=== PATIENT | female | born 1980 | race Two or more races ===

== ENCOUNTER 2020-05-30 09:12 | Outpatient (REF) | payer OTHER, SELFPAY ==
[2020-06-03 21:52] LABS: HPV mRNA E6/E7 Not Detected (Not Detected)
== END 2020-05-30 09:13 | disposition home or self-care (01) ==
LOC: HO.LAB 09:12
PROVIDERS: PCP Internal Medicine; Visit Provider Obstetrics & Gynecology
DX: Z01.419 Encounter for gynecological examination (general) (routine) without abnormal findings (principal)
CPT/HCPCS: 36415; 87624; 87625; 88141; 88142

== ENCOUNTER 2021-05-23 07:59 | Outpatient (REF) | payer OTHER, SELFPAY ==
[2021-05-23 08:23] LABS: MANUAL DIFF FLAG NO
[2021-05-23 09:52] LABS: Basophils Percent Auto 0.5 % (0-2); Eosinophils Absolute Auto 0.2 X10*3/uL (0.0-0.4); Eosinophils Percent Auto 2.9 % (0-4); Hematocrit 41.1 % (37.0-47.0); Hemoglobin 13.4 g/dl (12.0-16.0); Imm Gran Abs Auto 0.01 X10*3/uL (0.00-0.03); Imm Gran Pct Auto 0.1 % (0.0-0.4); Lymphocytes Absolute Auto 2.4 X10*3/uL (1.2-4.9); Lymphocytes Percent Auto 32.9 % (20-40); Mean Corpuscular HGB Conc 32.6 g/dl (31.0-35.0); Mean Corpuscular Hemoglobin 29.3 pg (27.0-33.0); Mean Corpuscular Volume 89.9 fL (80.0-98.0); Mean Platelet Volume 10.6 fL (9.4-12.3); Monocytes Absolute Auto 0.7 X10*3/uL (0.1-1.2); Monocytes Percent Auto 9.7 % (2-11); Neutrophils Percent Auto 53.9 % (45-73); Platelet Count 342 X10*3/uL (160-400); Red Blood Count 4.57 X10*6/uL (4.20-5.50); Red Cell Distribution Width 13.1 % (11.0-16.0); White Blood Count 7.3 X10*3/uL (4.8-10.8)
[2021-05-23 10:29] LABS: Alanine Aminotransferase 18 U/L (0-31); Albumin Level 4.5 g/dL (3.5-5.0); Alkaline Phosphatase 68 U/L (39-117); Anion Gap 13 (12-20); Aspartate Amino Transferase 26 U/L (5-31); Bilirubin Total 0.7 mg/dL (0.0-1.0); Blood Urea Nitrogen 12 mg/dL (9-16); Calcium 10.1 mg/dL (8.4-10.2); Chloride 102 mmol/L (96-108); Cholesterol 189 mg/dL; Estimated Glomerular Filt Rate 54; Glucose Random 104 mg/dL (60-115); Potassium 5.2 mmol/L (3.3-5.1); Sodium 134 mmol/L (135-145); Triglycerides 57 mg/dL
[2021-05-23 10:37] LABS: Carbon Dioxide 24 mmol/L (22-29); HDL Cholesterol 77 mg/dL; LDL Cholesterol Calculated 101 mg/dl
[2021-05-23 10:53] LABS: Folate 19.6 ng/mL (> or = 4.0); Vitamin B12 412 pg/mL (200-900)
[2021-05-23 11:01] LABS: Free T4 (Free Thyroxine) 1.06 ng/dL (0.71-1.85); Vitamin D 25-OH Total 25.8 ng/mL (>30)
== END 2021-05-23 08:00 | disposition home or self-care (01) ==
LOC: HO.LAB 07:59
PROVIDERS: PCP Internal Medicine; Visit Provider Internal Medicine
DX: E66.9 Obesity, unspecified (principal); E78.00 Pure hypercholesterolemia, unspecified
CPT/HCPCS: 36415; 80053; 80061; 82306; 82607; 82746; 84439; 84443; 85025

== ENCOUNTER → 2021-06-02 08:33 | Outpatient (BNVA) | payer OTHER, SELFPAY | PROVIDERS: PCP Internal Medicine; Visit Provider Obstetrics & Gynecology ==

== ENCOUNTER 2021-06-20 08:29 | Outpatient (REF) | payer OTHER, SELFPAY ==
--- NOTE | ~2021-06-20 | MM_ITS ---
EXAMINATION: MM SCREENING DIGITAL BREAST TOMOSYNTHESIS, BILATERAL CLINICAL INFORMATION: Screening. Asymptomatic. Age 41. No prior breast imaging. No known family history breast cancer. The lifetime risk of breast cancer based on the Tyrer-Cuzick Model is 11%. COMPARISON: None (current study represents initial baseline exam). TECHNIQUE: Digital breast tomosynthesis is performed in both the craniocaudal and mediolateral oblique views along with computer-aided detection (CAD). Synthesized 2D images are generated from the tomosynthesis. FINDINGS: There are scattered areas of fibroglandular density (ACR BI-RADS breast composition Category b). There are no significant masses, abnormal calcifications, or other abnormalities. Breast tissue composition borders on heterogeneously dense. The skin contours are smooth. Axilla are unremarkable. MM/MM tomosynthesis screening BI IMPRESSION: No mammographic evidence of malignancy. ASSESSMENT: BI-RADS 1: Negative RECOMMENDATION: Routine annual mammography screening. This patient's information was entered into a reminder system with a target due date for their next mammogram.
== END 2021-06-20 08:30 | disposition home or self-care (01) ==
LOC: HO.MAMMO 08:29
PROVIDERS: Visit Provider Internal Medicine
DX: Z12.31 Encounter for screening mammogram for malignant neoplasm of breast (principal)
CPT/HCPCS: 77063; 77067

== ENCOUNTER → 2021-07-29 07:28 | Outpatient (BNVA) | payer OTHER, SELFPAY | PROVIDERS: PCP Internal Medicine; Referring Provider Internal Medicine; Visit Provider Nurse Practitioner | DX: Z12.11 Encounter for screening for malignant neoplasm of colon (principal); Z80.0 Family history of malignant neoplasm of digestive organs ==

== ENCOUNTER 2021-11-26 07:34 | Day surgery (SDC) | payer OTHER, SELFPAY ==
[2021-11-19 19:53] VITALS: BMI 32.0
[2021-11-20 10:38] VITALS: BMI 33.0
--- NOTE | 2021-11-26 07:30 | HO.ANESPROP2 ---
HPI - Anesthesia Eval Consult details Narrative: 41 yo female patient for colonoscopy PMF Active Problems Active Problems: All Active Problems (Updated 07/29/21 @ 11:17 by NEREYDA Chase) Family history of malignant neoplasm of colon in relative diagnosed when younger than 50 years of age (Acute) Menorrhagia (Acute) Breast cancer screening by mammogram (Acute) Colon cancer screening (Acute) Well woman exam (Acute) Annual physical exam (Acute) Obesity (BMI 30-39.9) (Acute) Asthma (Acute). Controlled. No inhalers recently Denies DARINEL Past Medical History Medical History Asthma BRY III (cervical intraepithelial neoplasia grade III) with severe dysplasia Obesity (BMI 30-39.9) Vitamin D deficiency Family History Family History Father Colon cancer Mother No problems noted. Paternal Grandmother Myocardial infarction Maternal Grandfather Medical history unknown Family history of problems with anesthesia: No Surgical History Surgical History H/O LEEP History of ankle surgery History of section History of Problems with Anesthesia: No Social History Social History Housing: Apartment Alcohol intake: current Alcohol intake frequency: a few times a month Patient Tobacco Use Status: Former Tobacco user Tobacco use type: Cigarette Years Smoked: 2009 stopped e-Cigarette/Vaping Use: Never Used Second Hand Smoke Exposure: No Use of substances other than those prescribed or required for medical reasons: No Have you been hit, kicked, punched, or otherwise hurt by someone within the past year? If so, by whom?: No Are you DNR?: No Advance Directives: No Advance Directives Information Provided: Yes Advance Directives on File: No Recently lost weight without trying: No Nutrition Risks: No Nutritional Risk Patient : No : No Current occupational status: employed Meds Allergies Allergy/AdvReac Type Severity Reaction Status Date / Time shellfish derived Allergy Unknown Hives Verified 07/29/21 07:38 Exam Exam Date and Time: November 26, 2021 0730 Height,Weight and Vital Signs: Height 5 ft 2 in Weight 82.1 kg Vital Signs Temp Pulse Resp BP Pulse Ox O2 Del Method 11/26/21 07:49 98.1 F 71 18 129/94 H 98 Room Air Pertinent Lab Results Pertinent Lab Results: Lab Results 11/26/21 Range/Units 07:40 Urine Test NEGATIVE (NEGATIVE) Airway Mallampati Class: I TM Dist: >3cm Neck ROM: Full Loose/Missing/Broken Teeth: Yes (Some missing-extracted. Denies broken or loose teeth) Heart: RRR Lungs: CTAB Assessment and Plan Assessment Anesthesia Assessment: Anesthesia Plan Discussed and Chart Reviewed Final Anesthetic Review Family History of Problems with Anesthesia: No History of Problems with Anesthesia: No NPO: Yes ASA Class: II Final Preanesthetic Review: No Changes in Pt Med Stat, Meds/Allgs Chart Reviewed, Consent Obtained/Reviewed and Anes Risks/Benef Reviewed Patient Risk: Low Procedure Risk: Low Assessment/Block/Sedation in SS: Assess/Block/Sedation-SS Anesthetic Plan Anesthetic Plan: MAC: Disposition: Standard PACU
[2021-11-26 07:49] VITALS: BP 129/94; PULSE 71; RESP 18; TEMP 36.7; O2SAT 98
[2021-11-26 07:57] LABS: UPreg QC Valid YES; Urine Pregnancy NEGATIVE (NEGATIVE)
[2021-11-26] MEDS: Lactated Ringers 1,000 ML 100 ML IVCONT (08:06)
--- NOTE | 2021-11-26 08:38 | MHC.SHP ---
Pre-Procedural Eval Section A Date of Service: 11/26/21 Section B Chief Complaint: screening Details of Present Illness: father with CRC aged 38 Relevant Family History (Specify if Yes): Yes Relevant Social History: None Present Medications: see Short Stay Collaborative assessment Medical History: Significant History (Asthma BRY III (cervical intraepithelial neoplasia grade III) with severe dysplasia Obesity (BMI 30-39.9) Vitamin D deficiency) History of Previous Operations: Relevant previous surgery/procedure and date(s) (, LEEP) Allergies: Allergies Allergy/AdvReac Type Severity Reaction Status Date / Time shellfish derived Allergy Unknown Hives Verified 07/29/21 07:38 Review of Systems Sugical H&P ROS: Negative: Constitution, Cardiovascular, Respiratory, Neurological, Psychiatric, Hem-Onc, Allergic/Immunologic, Gastrointestinal, Genitourinary, Musculoskeletal, Integumentary, Endocrine and Eyes/Ears/Nose/Throat Exam Surgical H&P Exam: Normal: HEENT, Normal: Heart, Normal: Lungs, Normal: Extremities, Normal: Abdomen, Normal: Skin and Normal: Neurological Plan Diagnosis/Plan: Unchanged I have reviewed the history and physical and performed a pertinent physical examination on my patient. No changes have occurred unless specified.
--- NOTE | 2021-11-26 08:39 | P.OP_ITS ---
Operative Note Operative Note Date of Service: 11/26/21 Narrative: Operative Information Procedure Description: Colonoscopy Indication: screening, FH of CRC Anesthesia: MAC COLONOSCOPY Instrument: Olympus variable stiffness pediatric scope 190L Colonoscopy Monitoring: Vital signs and clinical assessment, continuous EKG monitoring, Pulse oximetry, Carbon Dioxide monitoring and blood pressure monitoring were done throughout the procedure. Colon withdrawal time was 10 minutes. Procedure: The patient was placed in the left lateral decubitis position and pre-procedure medications were administered. After a digital rectal examination of the ano-rectum, the video colonoscope was inserted into the rectum and advanced through the colon to the cecum/TI. The colonoscope was slowly withdrawn in a retrograde panoramic fashion and the colon mucosa was carefully examined including a retroflexed view of the rectum. Findings and interventions are described below. Procedure Difficulty: easy Findings: Terminal Ileum-normal Cecum:normal Ascending Colon: normal Transverse Colon -normal Descending Colon:normal Sigmoid Colon: normal Rectum: Retroflexion with small internal hemorrhoids, grade I Anorectum - normal Colon preparation: Harrells Bowel Preparation Scale Right colon; 2 Transverse colon: 3 Left colon; 2 (0 = Unprepared colon segment with mucosa not seen due to solid stool that cannot be cleared. 1 = Portion of mucosa of the colon segment seen, but other areas of the colon segment not well seen due to staining, residual stool and/or opaque liquid. 2 = Minor amount of residual staining, small fragments of stool and/or opaque liquid, but mucosa of colon segment seen well. 3 = Entire mucosa of colon segment seen well with no residual staining, small fragments of stool or opaque liquid) Impression and Post Procedure Diagnosis: internal hemorrhoids Plan: High fiber diet leaflet Avoid straining at stool, epsom salts and sitz bath, anusol supps or cream Repeat Colonoscopy in 5 years due to FH of CRC or earlier if clinically indicated Above findings were reviewed with the patient and relevant handouts were provided if indicated.
[2021-11-26 09:05] VITALS: BP 110/65; PULSE 66; RESP 15; TEMP 36.1; O2SAT 100
[2021-11-26 09:20] VITALS: BP 128/64; PULSE 61; RESP 16; TEMP 36.1; O2SAT 100
== END 2021-11-26 09:55 | disposition home or self-care (01) ==
PROVIDERS: Nurse Practitioner; PCP Internal Medicine; Visit Provider Internal Medicine Gastroenterology
PROC: 0DJD8ZZ Inspection of Lower Intestinal Tract, Via Natural or Artificial Opening Endoscopic (ICD-10-PCS; CPT 45378; principal; 2021-11-26 08:30)
DX: Z12.11 Encounter for screening for malignant neoplasm of colon (principal); Z80.0 Family history of malignant neoplasm of digestive organs; K64.0 First degree hemorrhoids; J45.909 Unspecified asthma, uncomplicated; E55.9 Vitamin D deficiency, unspecified; E66.9 Obesity, unspecified; Z68.33 Body mass index [BMI] 33.0-33.9, adult; Z87.891 Personal history of nicotine dependence
CPT/HCPCS: 45378; 81025

== ENCOUNTER → 2022-06-08 07:55 | Outpatient (BNVA) | payer OTHER, SELFPAY | PROVIDERS: PCP Internal Medicine; Visit Provider Obstetrics & Gynecology | DX: Z13.89 Encounter for screening for other disorder (principal) ==

== ENCOUNTER 2022-06-09 10:54 | Outpatient (REF) | payer OTHER, SELFPAY ==
[2022-06-09 11:06] LABS: MANUAL DIFF FLAG NO
[2022-06-09 12:05] LABS: Basophils Percent Auto 0.5 % (0-2); Eosinophils Absolute Auto 0.2 X10*3/uL (0.0-0.4); Eosinophils Percent Auto 2.6 % (0-4); Hematocrit 35.8 % (37.0-47.0); Hemoglobin 11.5 g/dl (12.0-16.0); Imm Gran Abs Auto 0.01 X10*3/uL (0.00-0.03); Imm Gran Pct Auto 0.2 % (0.0-0.4); Lymphocytes Absolute Auto 1.9 X10*3/uL (1.2-4.9); Lymphocytes Percent Auto 33.2 % (20-40); Mean Corpuscular HGB Conc 32.1 g/dl (31.0-35.0); Mean Corpuscular Hemoglobin 28.2 pg (27.0-33.0); Mean Corpuscular Volume 87.7 fL (80.0-98.0); Mean Platelet Volume 11.3 fL (9.4-12.3); Monocytes Absolute Auto 0.6 X10*3/uL (0.1-1.2); Monocytes Percent Auto 10.6 % (2-11); Neutrophils Percent Auto 52.9 % (45-73); Platelet Count 277 X10*3/uL (160-400); Red Blood Count 4.08 X10*6/uL (4.20-5.50); Red Cell Distribution Width 13.2 % (11.0-16.0); White Blood Count 5.8 X10*3/uL (4.8-10.8)
[2022-06-09 12:39] LABS: Estimated Average Glucose 91 mg/dL; Hemoglobin A1c % 4.8 %
[2022-06-09 12:41] LABS: Alanine Aminotransferase 18 U/L (0-31); Alkaline Phosphatase 51 U/L (39-117); Anion Gap 10 (12-20); Aspartate Amino Transferase 25 U/L (5-31); Bilirubin Total 0.6 mg/dL (0.0-1.0); Blood Urea Nitrogen 10 mg/dL (9-16); Calcium 9.3 mg/dL (8.4-10.2); Carbon Dioxide 28 mmol/L (22-29); Chloride 105 mmol/L (96-108); Cholesterol 182 mg/dL; Estimated Glomerular Filt Rate > 60; Glucose Random 96 mg/dL (60-115); HDL Cholesterol 78 mg/dL; LDL Cholesterol Calculated 95 mg/dl; Potassium 4.5 mmol/L (3.3-5.1); Sodium 138 mmol/L (135-145); Total Protein 6.6 g/dL (6.5-8.0); Triglycerides 46 mg/dL
[2022-06-09 13:12] LABS: Folate 11.9 ng/mL (> or = 4.0); Free T4 (Free Thyroxine) 0.93 ng/dL (0.71-1.85); Thyroid Stimulating Hormone 0.94 uIU/mL (0.32-4.0); Vitamin B12 296 pg/mL (200-900); Vitamin D 25-OH Total 20.9 ng/mL (>30)
== END 2022-06-09 10:55 | disposition home or self-care (01) ==
LOC: HO.LAB 10:54
PROVIDERS: PCP Internal Medicine; Visit Provider Internal Medicine
DX: E78.00 Pure hypercholesterolemia, unspecified (principal); R73.02 Impaired glucose tolerance (oral)
CPT/HCPCS: 36415; 80053; 80061; 82306; 82607; 82746; 83036; 84439; 84443; 85025

== ENCOUNTER 2022-06-26 09:09 | Outpatient (REF) | payer OTHER, SELFPAY ==
--- NOTE | ~2022-06-26 | MM_ITS ---
EXAMINATION: MM SCREENING DIGITAL BREAST TOMOSYNTHESIS, BILATERAL CLINICAL INFORMATION: Screening. Asymptomatic. The lifetime risk of breast cancer based on the Tyrer-Cuzick Model is 11%. COMPARISON: Mammography: 06/20/2021 (baseline) TECHNIQUE: Digital breast tomosynthesis is performed in both the craniocaudal and mediolateral oblique views along with computer-aided detection (CAD). Synthesized 2D images are generated from the tomosynthesis. FINDINGS: The breasts are heterogeneously dense, which may obscure small masses (ACR BI-RADS breast composition Category c). Breast tissue composition borders on average fibroglandular. Some minor scattered asymmetries are stable. No developing density or interval architectural abnormality or significant mass. No abnormal calcifications. The axilla and skin contours are unremarkable. No significant changes. MM/MM tomosynthesis screening BI IMPRESSION: No mammographic evidence of malignancy. ASSESSMENT: BI-RADS 2: Benign RECOMMENDATION: Routine annual mammography screening. This patient's information was entered into a reminder system with a target due date for their next mammogram.
== END 2022-06-26 09:10 | disposition home or self-care (01) ==
LOC: HO.MAMMO 09:09
PROVIDERS: PCP Internal Medicine; Visit Provider Obstetrics & Gynecology
DX: Z12.31 Encounter for screening mammogram for malignant neoplasm of breast (principal)
CPT/HCPCS: 77063; 77067

== ENCOUNTER 2023-06-10 07:56 | Outpatient (AMB) | payer OTHER, SELFPAY ==
--- NOTE | 2023-06-10 08:12 | A.OFFVIS_ITS ---
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 Complaining of irregular menstrual cycle over the last six-month Last Pap/HPV was negative in 05/30 Last Mammogram was BI-RADS 2 in 07/02 [facility] Medical History Breast cancer screening by mammogram Colon cancer screening Vitamin D deficiency Obesity (BMI 30-39.9) BRY III (cervical intraepithelial neoplasia grade III) with severe dysplasia Asthma Surgical History History of ankle surgery H/O LEEP History of section Family History Father Colon cancer Mother No problems noted. 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 Sexual orientation: Straight/Heterosexual Gender identity: Female Cognitive needs: No Hearing needs: No Vision needs: No Female Reproductive History Menstrual Age of Menarche: 14 Duration of menses: 3-5 days Date of last menstrual period: 05/22/23 control method: none Total pregnancies: 2 Full term: 2 Number of Living Children: 2 Review of Systems Const All systems reviewed & are unremarkable except as noted in HPI and below Card Reports as per HPI Resp Reports as per HPI GI Reports as per HPI and Reports no additional complaints Reports as per HPI Physical Exam Vital Signs: Last Vital Signs BP 118/74 06/10/23 08:13 BMI result Body Mass Index 32.3 Const General: cooperative, healthy appearing and comfortable Chest Chest palpation & inspection: normal inspection of the chest and normal palpation of entire chest wall Breast/axilla inspection: normal inspection of the breasts and normal inspection of the axillae Breast/axilla palpation: normal palpation of the breasts, normal palpation of the axillae and no axillary lymphadenopathy Resp Effort & Inspection: normal respiratory effort Auscultation: clear to auscultation bilaterally Percussion: percussion normal Cardio Palpation: normal PMI Rate: regular rate Rhythm: regular rhythm Heart sounds: no murmurs and no rubs Peripheral pulses: Peripheral pulses 2+ throughout GI Inspection: Yes normal to inspection Palpation (GI): Soft to palpation, nontender, no guarding, not rigid and No hepatosplenomegaly present Percussion: Yes normal to percussion Auscultation: normal bowel sounds Rectal Exam - Female: deferred General: Yes bladder normal to palpation External Female Exam: No lesion Speculum Exam - Vagina: normal appearance of the vagina, normal palpation, normal vaginal discharge and not erythematous Speculum Exam - Cervix: normal appearance of the cervix and normal palpation Bimanual exam- vagina & uterus: normal bimanual exam, normal palpation, uterine size normal, bladder normal to palpation, consistency normal and normal palpation Bimanual Exam- Adnexa, other: normal adnexae, no masses and no tenderness Assessment & Plan Assessment & Plan (1) Well woman exam: Code(s): Z01.419 - Encounter for gynecological examination (general) (routine) without abnormal findings Plan: Cotesting not indicated this year. Mammogram ordered. Counseled the patient about the recommended dietary allowance of 1000 mg of Calcium & 600 IU of vitamin D. The patient was instructed to perform monthly self-breast exams and to schedule an annual exam in a year; All questions answered and the patient verbalized understanding. Instructed the patient to schedule annual exam in a year (2) Abnormal uterine bleeding: Code(s): N93.9 - Abnormal uterine and vaginal bleeding, unspecified Plan: Co testing not indicated this year, GC and chlamydia taken CBC, TSH, prolactin, FSH/LH, HCG, and pelvic ultrasound ordered. Discussed with the patient the different causes of abnormal bleeding including thyroid disorders, uterine and ovarian pathology, endometrial hyperplasia, carcinoma and other potential causes. Discussed with the patient the work up including CBC (to r/o anemia), TSH, pelvic Ultrasound, endometrial biopsy to r/o endometrial pathology. All questions answered and the patient verbalized understanding. Instructed the patient to schedule an appointment for an endometrial biopsy in 2 weeks. Orders: Orders TSH reflex Free T4 Today N93.9 - Abnormal uterine and vaginal bleeding, unspecified Prolactin Today N93.9 - Abnormal uterine and vaginal bleeding, unspecified HCG Quantitative Today N93.9 - Abnormal uterine and vaginal bleeding, unspecified US pelvic and transvaginal Today N93.9 - Abnormal uterine and vaginal bleeding, unspecified MM screening mammo BI Today Z12.31 - Encounter for screening mammogram for malignant neoplasm of breast MM tomosynthesis screening BI Today Z12.31 - Encounter for screening mammogram for malignant neoplasm of breast Complete Blood Count no Diff Today N93.9 - Abnormal uterine and vaginal bleeding, unspecified Lutenizing Hormone Today N93.9 - Abnormal uterine and vaginal bleeding, unspecified Follicle Stimulating Hormone Today N93.9 - Abnormal uterine and vaginal bleeding, unspecified Coding Level of Care Code Est Pt Prev Care 40-64y(21554) Diagnoses Well woman exam Z01.419 Abnormal uterine bleeding N93.9
[2023-06-10 08:13] VITALS: BP 118/74; BMI 32.3
== END 2023-06-10 08:35 | disposition home or self-care (01) ==
PROVIDERS: Visit Provider Obstetrics & Gynecology
DX: Z01.419 Encounter for gynecological examination (general) (routine) without abnormal findings (principal); N93.9 Abnormal uterine and vaginal bleeding, unspecified
CPT/HCPCS: 99396

== ENCOUNTER 2023-06-10 07:56 | Outpatient (REF) | payer OTHER, SELFPAY ==
[2023-06-10 11:51] LABS: CT PCR NOT DETECTED (Not Detect.); NG PCR NOT DETECTED (Not Detect.)
== END 2023-06-10 07:57 | disposition home or self-care (01) ==
LOC: HO.LNP 07:56
PROVIDERS: Visit Provider Obstetrics & Gynecology
DX: N93.9 Abnormal uterine and vaginal bleeding, unspecified (principal); Z20.2 Contact with and (suspected) exposure to infections with a predominantly sexual mode of transmission
CPT/HCPCS: 0353U

== ENCOUNTER 2023-06-15 10:55 | Outpatient (AMB) | payer OTHER, SELFPAY ==
[2023-06-15 10:57] VITALS: BP 122/84; PULSE 78; O2SAT 99; BMI 31.2
--- NOTE | 2023-06-15 10:57 | A.OFFPC_ITS ---
Vital Signs 06/15/23 10:57 Height 5 ft 1 in Weight 165 lb 0.6 oz BMI 31.2 BP 122/84 Blood Pressure Location Lt brachial Position Sitting Pulse 78 Pulse Source Pulse Oximeter Pulse Oximetry (%) 99 Oxygen Delivery Method Room Air Intake Visit Reasons: Annual Exam Intake Note: Patient is here today for a physical. Configuration Analyst Required: No Allergies shellfish derived Allergy (Unknown, Verified 06/15/23 10:57) Hives Medication List - Last Reconciled 06/15/23 by Lazaro Stark MD No Known Home Meds Tobacco use date assessed: 06/15/23 Dental Screening Dental Screen Date: 06/15/23 Did you have a dental visit in the last 12 months?: Yes Did you have a dental problem in the last 6 months where you did not have access to dental care?: No Was dental information given to patient?: Patient has dentist HPI Annual Exam HPI Details 43-year-old obese female with asthma imp aired glucose tolerance coming in for physical exam last seen in May last year. Patient's mammogram is due colonoscopy is up-to-date November 2021 5 years. has anemia and menorrhagia - US to be done under gynecology [facility] Medical History Breast cancer screening by mammogram Colon cancer screening Vitamin D deficiency Obesity (BMI 30-39.9) BRY III (cervical intraepithelial neoplasia grade III) with severe dysplasia Asthma Surgical History History of ankle surgery H/O LEEP History of section Family History Father Colon cancer Mother No problems noted. 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 1. Little interest or pleasure in doing things: not at all 2. Feeling down, depressed, or hopeless: not at all 3. Trouble falling or staying asleep, or sleeping too much: not at all 4. Feeling tired or having little energy: not at all 5. Poor appetite or overeating: not at all 6. Feeling bad about yourself - or that you are a failure or have let yourself or your family down: not at all 7. Trouble concentrating on things, such as reading the newspaper or watching television: not at all 8. Moving or speaking so slowly that other people could have noticed. Or the opposite - being so fidgety or restless that you have been moving around a lot more than usual: not at all 9. Thoughts that you would be better off or of hurting yourself in some way: not at all Total score: 0 Depression Screening Interpretation: Negative Depression Screening Done: Yes Source: Developed by Drs. Kavon Cobb, Simona Lagunas, Keegan Whyte and colleagues, with an educational latasha from [employer]. Thrive Questionnaire Date Thrive assessed: 06/15/23 AUDIT C Alcohol Use Questionnaire (AUDIT-C) 1. How often do you have a drink containing alcohol?: Monthly or less 2. How many drinks containing alcohol do you have on a typical day when you are drinking?: 1 or 2 3. How often do you have six or more drinks on one occasion?: Never Total Score: 1 ROBERTO CARLOS-7 AMB Questionnaire ROBERTO CARLOS-7 Date ROBERTO CARLOS - 7 assessed: 06/15/23 Feeling nervous, anxious, or on edge: 0 = Not at all Not being able to stop or control worryin = Not at all Worrying too much about different things: 0 = Not at all Trouble relaxin = Not at all Being so restless that it is hard to sit still: 0 = Not at all Becoming easily annoyed or irritable: 0 = Not at all Feeling afraid as if something awful might happen: 0 = Not at all Total ROBERTO CARLOS-7 score (0-4 normal; 5-9 mild; 10-14 moderate; 15-21 severe): 0 Source: Developed by Drs. Kavon Cobb, Simona Lagunas, Keegan Whyte and colleagues, with an educational latasha from [employer]. Review of Systems Const Denies poor appetite and Denies weakness Eyes Denies no additional complaints ENT Reports Normal hearing present, Denies dizziness, Denies nasal congestion, Denies tinnitus and Denies sore throat Card Denies chest pain, Denies syncope, Denies rapid heart rate and Denies dyspnea Resp Denies cough and Denies dyspnea GI Denies change in stool character, Reports constipation, Denies diarrhea, Denies nausea and Denies vomiting Denies urinary frequency, Denies difficulty voiding and Denies dysuria Neuro Reports Normal hearing present, Denies confusion, Denies dizziness, Denies syncope and Denies weakness Psych Denies confusion Physical exam (Primary Care) Vital Signs: Last Vital Signs Pulse 78 06/15/23 10:57 BP 122/84 06/15/23 10:57 Pulse Ox 99 06/15/23 10:57 Oxygen Delivery Method Room Air 06/15/23 10:57 BMI result Body Mass Index 31.2 Tobacco/Smoking Status: Tobacco use Status Tobacco use date assessed 06/15/23 06/15/23 10:58 Patient Tobacco Use Status Former Tobacco user 06/15/23 10:58 Tobacco use type Cigarette 06/15/23 10:58 e-Cigarette/Vaping Use Never Used 06/15/23 10:58 PHQ-9: PHQ-9 Score PHQ-9: Total score 0 06/15/23 11:22 Depression Screening Interpretation: Negative Thrive Assessment: Date of Thrive Assessment Date Thrive assessed 06/15/23 06/15/23 10:58 Const General: No confusion Orientation/consciousness: No confusion HENMT Head: Yes normocephalic Ears: external ears normal and TM's normal bilaterally Face and sinus: Yes normal facial exam Mouth: moist mucous membranes Throat: Yes tonsils normal Eyes Conjunctivae: conjunctivae normal Pupils: Equal, round and reactive pupils present and Pupil accommodation reflex normal Direct Ophthalmoscopy: normal light reflex Neck Neck: No lymphadenopathy Thyroid: Thyroid normal Chest Chest palpation & inspection: normal inspection of the chest Resp Effort & Inspection: normal respiratory effort and no audible wheezes Auscultation: clear to auscultation bilaterally, no crackles, no wheezes and lung sounds not diminished Cardio Rate: regular rate Rhythm: regular rhythm Peripheral pulses: radial pulses present and dorsalis pedis present GI Palpation (GI): no masses Auscultation: normal bowel sounds and normoactive bowel sounds Rectal Exam - Female: deferred Skin General skin exam: no rashes or lesions noted Rashes: no rashes Neuro General: No confusion Cranial nerves: Yes Equal, round and reactive pupils present and Yes Normal hearing present Cognition (Neuro): normal cognition Gait exam (Neuro): Normal gait present Motor exam (neuro): 5/5 motor strength present throughout Deep tendon reflexes (DTR's): Right brachioradialis reflex intensity grade: 2+, Left brachioradialis reflex intensity grade: 2+, Right patellar reflex intensity grade: 2+ and Left patellar reflex intensity grade: 2+ Extrem General: No edema Assessment and Plan Assessment & Plan (1) Annual physical exam: Code(s): Z00.00 - Encounter for general adult medical examination without abnormal findings (2) Obesity (BMI 30-39.9): Code(s): E66.9 - Obesity, unspecified Plan: Diet and exercise noted weight loss! (3) Asthma: Code(s): J45.909 - Unspecified asthma, uncomplicated Plan: breathing good Coding Level of Care Code Est Pt Prev Care 40-64y(93580) Diagnoses Annual physical exam Z00.00 Obesity (BMI 30-39.9) E66.9 Asthma J45.909
== END 2023-06-15 11:54 | disposition home or self-care (01) ==
PROVIDERS: Visit Provider Internal Medicine
DX: Z00.00 Encounter for general adult medical examination without abnormal findings (principal); E66.9 Obesity, unspecified; J45.909 Unspecified asthma, uncomplicated; Z68.31 Body mass index [BMI] 31.0-31.9, adult
CPT/HCPCS: 99396

== ENCOUNTER 2023-06-15 13:58 | Outpatient (REF) | payer OTHER, SELFPAY ==
--- NOTE | ~2023-06-15 | US_ITS ---
EXAMINATION: US PELVIS CLINICAL INFORMATION: Abnormal uterine and vaginal bleeding; the last menstrual period was on 06/02/2023. COMPARISON: Pelvic ultrasound dated 09/21/2017. TECHNIQUE: Ultrasound of the pelvis is performed using both transabdominal and transvaginal transducers along with Doppler. Transvaginal imaging is performed due to inadequate visualization transabdominally. FINDINGS: Uterus: The uterus is anteverted and measures 10.1 x 4.6 x 5.9 cm. The double wall endometrial thickness is 1.0 mm. The uterus is smooth in contour and has normal myometrial echogenicity. No visible fibroid. At the level of the section scar, a 1.7 x 0.9 x 1.4 cm simple cyst is seen. On the ultrasound examination of 09/21/2017, this measured 1.3 x 0.8 x 1.1 cm. Nabothian cysts are seen within the cervix. Adnexa: Both ovaries are visualized. There is normal color flow to the adnexa. There is no ovarian torsion. There is no pelvic ascites or fluid collection. There is prominent left adnexal vasculature. Right ovary measures 2.6 x 1.3 x 1.5 cm, volume 2.8 mL. A 1.2 x 1.1 x 1.3 cm right ovarian corpus luteum cyst is seen. This requires no imaging follow-up. Left ovary measures 3.3 x 1.9 x 1.9 cm, volume 6.0 mL. US/US pelvic and transvaginal IMPRESSION: 1. Nabothian cysts are seen within the cervix. 2. 1.7 cm simple cyst is again seen in the lower uterine segment, likely a seroma or liquefied hematoma related to prior section. 3. There is prominent left adnexal vasculature, which can be associated with pelvic congestion.
== END 2023-06-15 13:59 | disposition home or self-care (01) ==
LOC: HO.HMGCX 13:58
PROVIDERS: PCP Internal Medicine; Visit Provider Obstetrics & Gynecology
DX: N93.9 Abnormal uterine and vaginal bleeding, unspecified (principal)
CPT/HCPCS: 76830; 76856

== ENCOUNTER 2023-06-30 09:01 | Outpatient (REF) | payer OTHER, SELFPAY ==
--- NOTE | ~2023-06-30 | MM_ITS ---
EXAMINATION: MM SCREENING DIGITAL BREAST TOMOSYNTHESIS, BILATERAL CLINICAL INFORMATION: Screening. Asymptomatic. COMPARISON: Mammography: This study is compared with prior exams dating back to 2021. TECHNIQUE: Digital breast tomosynthesis is performed in both the craniocaudal and mediolateral oblique views along with computer-aided detection (CAD). Synthesized 2D images are generated from the tomosynthesis. FINDINGS: The breasts are heterogeneously dense, which may obscure small masses (ACR BI-RADS breast composition Category c). There are no significant masses, abnormal calcifications, or other abnormalities. MM/MM tomosynthesis screening BI IMPRESSION: No mammographic evidence of malignancy. ASSESSMENT: BI-RADS BI-RADS 1 - Negative RECOMMENDATION: Routine annual mammography screening. 1 year F/U This examination should not preclude the clinical evaluation of a suspicious palpable abnormality. This patient's information was entered into a reminder system with a target due date for their next mammogram.
== END 2023-06-30 09:02 | disposition home or self-care (01) ==
LOC: HO.MAMMO 09:01
PROVIDERS: PCP Internal Medicine; Referring Provider Obstetrics & Gynecology; Visit Provider Internal Medicine
DX: Z12.31 Encounter for screening mammogram for malignant neoplasm of breast (principal)
CPT/HCPCS: 77063; 77067

== ENCOUNTER → 2023-06-30 09:15 | Outpatient (BNV) | payer OTHER, SELFPAY | PROVIDERS: PCP Internal Medicine; Referring Provider Obstetrics & Gynecology; Visit Provider Radiology Diagnostic Radiology | DX: Z12.31 Encounter for screening mammogram for malignant neoplasm of breast (principal) | CPT/HCPCS: 77063; 77067 ==

== ENCOUNTER 2023-07-15 07:55 | Outpatient (REF) | payer OTHER, SELFPAY | END 2023-07-15 07:56 | disposition home or self-care (01) | LOC: HO.LNP 07:55 | PROVIDERS: PCP Internal Medicine; Visit Provider Obstetrics & Gynecology | DX: N93.9 Abnormal uterine and vaginal bleeding, unspecified (principal) | CPT/HCPCS: 58100; 81025; 88305 ==

== ENCOUNTER 2023-07-15 07:55 | Outpatient (AMB) | payer OTHER, SELFPAY ==
--- NOTE | 2023-07-15 08:12 | A.OFFVIS_ITS ---
Intake Vital Signs 07/15/23 08:24 Height 5 ft 1 in Weight 74 kg BMI 30.8 BP 110/72 Intake Visit Reasons: Ultrasound follow up/ EMB Riding Coach Required: No Information Interpreted: non-clinical & clinical Terminal Operator: Terminal Operator Present (Chandni GARCÍA) Accompanied by: Self / Same As Patient Allergies shellfish derived Allergy (Unknown, Verified 07/15/23 08:25) Hives Is last menstrual period known: Yes Last menstrual period: 07/02/23 HPI HPI Comments History of Present Illness Details Presenting for EMB PFSH Medical History Breast cancer screening by mammogram Colon cancer screening Vitamin D deficiency Obesity (BMI 30-39.9) BRY III (cervical intraepithelial neoplasia grade III) with severe dysplasia Asthma Surgical History History of ankle surgery H/O LEEP History of section Family History Father Colon cancer Mother No problems noted. 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 hysteroscopy D&C) & the risks were discussed with the patient including but not limited: pain, uterine perforation, bleeding, infection, possible injury to bladder, bowel, ureter, possible need for blood transfusion with all its possible risks. The patient verbalized understanding all questions answered and signed consent. Urine test done in the office was negative The patient was placed into the dorsal lithotomy position; a speculum was inserted in the vagina. Using aseptic technique for the procedure, the cervix was cleansed with Betadine. The anterior lip of the cervix was grasped with a single tooth tenaculum. The uterus was sounded to 7 cm with a 4 mm Pipelle was used. Tissues samples were obtained and placed in formalin, in a patient labeled container and sent to the pathology department. At the end of the procedure, there was minimal bleeding noted The patient tolerated the procedure well and was discharged in good condition with the following instructions: Nothing in the vagina until the bleeding stops. No sex until the bleeding stops, to call if any of the following occurs: fever (>100.4), flu-like symptoms, abdominal pain, heavy bleeding, four smelling vaginal discharge. The patient was instructed to schedule a Follow up appointment in 2 weeks to discuss pathology results of the biopsy and treatment options. This note was generated with a voice recognition program. Some errors may have been overlooked during the review of this note. Sometimes these errors may affect the content or meaning of a given sentence. [id number] Biopsy Assessment & Plan Assessment & Plan (1) Abnormal uterine bleeding: Code(s): N93.9 - Abnormal uterine and vaginal bleeding, unspecified Plan: EMB done, see procedure note Orders: Orders AMB Endometrial Biopsy Today N93.9 - Abnormal uterine and vaginal bleeding, unspecified Coding Level of Care Code Procedure Only Diagnoses Abnormal uterine bleeding N93.9 CPT Codes Endometrial Biopsy - CPT: 46880-Bkjbopycsfd Biopsy ([id number])
[2023-07-15 08:24] VITALS: BP 110/72; BMI 30.8
== END 2023-07-15 08:25 | disposition home or self-care (01) ==
PROVIDERS: PCP Internal Medicine; Visit Provider Obstetrics & Gynecology
DX: N93.9 Abnormal uterine and vaginal bleeding, unspecified (principal); Z32.02 Encounter for pregnancy test, result negative
CPT/HCPCS: 58100

== ENCOUNTER 2023-07-20 15:55 | Outpatient (AMB) | payer OTHER, SELFPAY ==
--- NOTE | 2023-07-20 16:00 | A.OFFVIS_ITS ---
Intake Vital Signs 07/20/23 16:03 Height 5 ft 1 in Weight 163 lb 2.273 oz BMI 30.8 BP 118/70 Intake Visit Reasons: pre op/4pm Clinic Scheduler: Clinic Scheduler Present Allergies shellfish derived Allergy (Unknown, Verified 07/15/23 08:25) Hives Is last menstrual period known: Yes Last menstrual period: 03/07/20 Post menopausal: No Patient : No Do you need a note to return to daycare/school/sports/work: Yes (for surgery on wednesday) HPI HPI Comments History of Present Illness Details The patient is presenting after endometrial biopsy. The patient has no complaints, no vaginal bleeding, no feverishness chills or abdominal pain. Endometrial biopsy pathology showed the following: Endometrium, biopsy: Benign proliferative endometrium with one fragment suggestive of benign endometrial polyp; no atypia or carcinoma FOR[facility]LY [facility] Medical History Breast cancer screening by mammogram Colon cancer screening Vitamin D deficiency Obesity (BMI 30-39.9) BRY III (cervical intraepithelial neoplasia grade III) with severe dysplasia Asthma Surgical History History of ankle surgery H/O LEEP History of section Family History Father Colon cancer Mother No problems noted. 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 Sexual orientation: Straight/Heterosexual Gender identity: Female Cognitive needs: No Hearing needs: No Vision needs: No Female Reproductive History Menstrual Age of Menarche: 14 Date of last menstrual period: 03/07/20 Total pregnancies: 2 Full term: 2 Review of Systems Card Reports as per HPI and Reports no additional complaints Resp Reports as per HPI and Reports no additional complaints GI Reports as per HPI and Reports no additional complaints Reports as per HPI Physical Exam Vital Signs: Last Vital Signs BP 118/70 07/20/23 16:03 BMI result Body Mass Index 30.8 Const General: cooperative, healthy appearing and comfortable Chest Chest palpation & inspection: normal inspection of the chest and normal palpation of entire chest wall Breast/axilla inspection: normal inspection of the breasts and normal inspection of the axillae Breast/axilla palpation: normal palpation of the breasts, normal palpation of the axillae and no axillary lymphadenopathy Resp Effort & Inspection: normal respiratory effort Auscultation: clear to auscultation bilaterally Percussion: percussion normal Cardio Palpation: normal PMI Rate: regular rate Rhythm: regular rhythm Heart sounds: no murmurs and no rubs Peripheral pulses: Peripheral pulses 2+ throughout GI Inspection: Yes normal to inspection Palpation (GI): Soft to palpation, nontender, no guarding, not rigid and No hepatosplenomegaly present Percussion: Yes normal to percussion Auscultation: normal bowel sounds Rectal Exam - Female: deferred Assessment & Plan Assessment & Plan (1) Abnormal uterine bleeding: Comment: Endometrial polyp on EMB pathology Code(s): N93.9 - Abnormal uterine and vaginal bleeding, unspecified Plan: Discussed with the patient the results the pathology showing fragments of benign endometrial polyp, recommended hysteroscopy D&C possible polypectomy/myomectomy. Discussed with the patient the procedure , all benefits and risks including but not limited to inability to complete the procedure , insufficient endometrial tissue for a complete evaluation of the endometrial cavity , bleeding, infection, possible need for blood transfusion with all its risk ( HIV,syphilis, Hepatitis, anaphylaxis shock, others..), injury to bladder, rectum, possible need for laparoscopy/laparotomy or hysterectomy. The patient verbalized understanding and signed the consent. Instructions given the patient to schedule a 2 week postoperative appointment Coding Level of Care Code Est Pt Level 3 (56658) Diagnoses Abnormal uterine bleeding N93.9
[2023-07-20 16:03] VITALS: BP 118/70; BMI 30.8
== END 2023-07-21 07:50 | disposition home or self-care (01) ==
PROVIDERS: PCP Internal Medicine; Visit Provider Obstetrics & Gynecology
DX: N93.9 Abnormal uterine and vaginal bleeding, unspecified (principal)
CPT/HCPCS: 99213

== ENCOUNTER → 2023-07-20 15:55 | Outpatient (BNVA) | payer OTHER, SELFPAY | PROVIDERS: PCP Internal Medicine; Visit Provider Obstetrics & Gynecology ==

== ENCOUNTER 2023-08-06 10:41 | Day surgery (SDC) | payer OTHER, SELFPAY ==
[2023-08-04 09:48] VITALS: BMI 30.8
--- NOTE | 2023-08-04 14:27 | P.CONAN_ITS ---
Documented by User: Tonya Deng NP 08/04/23 14:28 HPI - Anesthesia Eval Consult details Narrative: 43yo F for D&C Hysteroscopy,possible myomectomy,possible polypectomy, PMFSH Active Problems Active Problems: All Active Problems (Updated 07/20/23 @ 16:01 by Romeo Puente MD) Abnormal uterine bleeding (Acute) Impaired glucose tolerance (Acute) Family history of malignant neoplasm of colon in relative diagnosed when younger than 50 years of age (Acute) Menorrhagia (Acute) Well woman exam (Acute) Annual physical exam (Acute) Obesity (BMI 30-39.9) (Acute) Asthma (Acute) Past Medical History Medical History Breast cancer screening by mammogram Colon cancer screening Vitamin D deficiency Obesity (BMI 30-39.9) BRY III (cervical intraepithelial neoplasia grade III) with severe dysplasia Asthma Family History Family History Father Colon cancer Mother No problems noted. Paternal Grandmother Myocardial infarction Maternal Grandfather Medical history unknown Family history of problems with anesthesia: No Surgical History Surgical History History of ankle surgery H/O LEEP History of section History of Problems with Anesthesia: No Social History Social History Household Members: Children Housing: Apartment Alcohol intake: current Alcohol intake frequency: a few times a month Comment: once a week glass Patient Tobacco Use Status: Former Tobacco user Quit Date: 2002 Tobacco use type: Cigarette Years Smoked: 2009 stopped e-Cigarette/Vaping Use: Never Used Second Hand Smoke Exposure: No Use of substances other than those prescribed or required for medical reasons: No Are you DNR?: No Advance Directives: No Advance Directives Information Provided: Yes service: No Current occupational status: employed 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 Sexual orientation: Straight/Heterosexual Gender identity: Female Cognitive needs: No Hearing needs: No Vision needs: No Meds Allergies Allergy/AdvReac Type Severity Reaction Status Date / Time shellfish derived Allergy Unknown Hives Verified 07/15/23 08:25 Home Medications Medication Instructions Recorded Confirmed Last Taken Type No Known Home Meds 06/08/22 06/15/23 Unknown History Exam Height,Weight and Vital Signs: Height 5 ft 1 in Weight 73.936 kg Assessment and Plan Assessment Anesthesia Assessment: Chart Reviewed Final Anesthetic Review Family History of Problems with Anesthesia: No History of Problems with Anesthesia: No Documented by User: Grayson Sheth MD 08/06/23 12:23 PMF Past Medical History Medical History Breast cancer screening by mammogram Colon cancer screening Vitamin D deficiency Obesity (BMI 30-39.9) BRY III (cervical intraepithelial neoplasia grade III) with severe dysplasia Asthma Patient : No Family History Family History Father Colon cancer Mother No problems noted. Paternal Grandmother Myocardial infarction Maternal Grandfather Medical history unknown Surgical History Surgical History History of ankle surgery H/O LEEP History of section Social History Social History Household Members: Children Housing: Apartment Alcohol intake: current Alcohol intake frequency: a few times a month Comment: once a week glass Patient Tobacco Use Status: Former Tobacco user Quit Date: 2002 Tobacco use type: Cigarette Years Smoked: 2009 stopped e-Cigarette/Vaping Use: Never Used Second Hand Smoke Exposure: No Use of substances other than those prescribed or required for medical reasons: No Are you DNR?: No Advance Directives: No Advance Directives Information Provided: Yes service: No Current occupational status: employed 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 Sexual orientation: Straight/Heterosexual Gender identity: Female Cognitive needs: No Hearing needs: No Vision needs: No Meds Allergies Allergy/AdvReac Type Severity Reaction Status Date / Time shellfish derived Allergy Unknown Hives Verified 07/15/23 08:25 Home Medications Medication Instructions Recorded Confirmed Last Taken Type No Known Home Meds 06/08/22 06/15/23 Unknown History Exam Airway Mallampati Class: II TM Dist: >3cm Neck ROM: Full Loose/Missing/Broken Teeth: No Heart: ok Lungs: ok Assessment and Plan Assessment Anesthesia Assessment: Anesthesia Plan Discussed Final Anesthetic Review NPO: Yes ASA Class: II Final Preanesthetic Review: No Changes in Pt Med Stat, Meds/Allgs Chart Reviewed, Consent Obtained/Reviewed and Anes Risks/Benef Reviewed Patient Risk: Low Procedure Risk: Low Anesthetic Plan Anesthetic Plan: GA and Agree w/ Assess. and Plan Disposition: Standard PACU
[2023-08-06 11:09] VITALS: BMI 31.2
[2023-08-06 11:12] VITALS: BP 145/80; PULSE 76; RESP 18; TEMP 36.4; O2SAT 97
[2023-08-06 11:14] LABS: UPreg QC Valid YES; Urine Pregnancy NEGATIVE (NEGATIVE)
[2023-08-06] MEDS: Lactated Ringers 1,000 ML 100 ML IVCONT (11:55)
--- NOTE | 2023-08-06 12:16 | MHC.SHP ---
Pre-Procedural Eval Section A - 24 Hr Update-Section A only Date of Service: 08/06/23 The patient is an INPATIENT: No Changes since office visit: No Cold of Flu in the past 2 weeks, No New Medical Problems, No Changes in Medication and No Patient answered all questions The patient has been examined within 24 hours of the surgical procedure. The History & Physical has been completed within 30 days and I have reviewed it.: Yes Section B - Complete if H&P > 30 days Chief Complaint: Abnormal uterine and vaginal bleeding, unspecified Allergies: Allergies Allergy/AdvReac Type Severity Reaction Status Date / Time shellfish derived Allergy Unknown Hives Verified 07/15/23 08:25 Plan Diagnosis/Plan: Unchanged I have reviewed the history and physical and performed a pertinent physical examination on my patient. No changes have occurred unless specified. Time Spent With Patient Time: Total time managing care of this patient today ____ minutes.
--- NOTE | 2023-08-06 13:02 | P.BOP_ITS ---
Brief Operative Note Date of Service: 08/06/23 Pre-op diagnosis: Abnormal uterine bleeding, endometrial polyp on EMB pathology Post-op diagnosis: same (Normal endometrial cavity) Procedure: Hysteroscopy D&C Surgeon: Romeo Puente MD Anesthesia: GLMA Was an Director Of Housing And Energy Services used for this Procedure?: No Estimated blood loss (mL): 0 Pathology: other (Endometrial Scrapping. ) Condition: stable Disposition: PACU
--- NOTE | 2023-08-06 13:03 | P.OP_ITS ---
Operative Note Operative Note Date of Service: 08/06/23 Narrative: Preop Diagnosis: Abnormal uterine bleeding, endometrial polyp on EMB pathology Operation: Diagnostic Hysteroscopy, Dilataion & Curettage Post Op Diagnosis: Normal endometrial and endocervical cavity, no evidence of pathology QBL: Minimal Anesthesia: GLMA Surgeon: Romeo Puente MD Linux System Engineer: None Complication: None Pathology: Endometrial Scrapings Procedure: The patient was put in the dorsal lithotomy position, scrubbed, and draped in the usual manner. A sterile speculum was inserted in the patient's vagina. The anterior lip of the cervix was grasped with a single tooth tenaculum. The cervix was dilated up to 5 mm, then the scope was inserted in the patient's uterus. Inspection revealed normal endocervical & endometrial cavity with no evidence of pathology. The scope was taken out of the uterine cavity , then sharp curetting was carried on with no complications. At the end of the procedure, all instruments were taken out of the patient uterine and vaginal cavity. The single tooth tenaculum was removed and homeostasis was assured using pressure. The patient tolerated the procedure well and was transferred to the PACU in a stable condition.
[2023-08-06 13:11] VITALS: BP 146/97; PULSE 66; RESP 16; TEMP 36.6; O2SAT 100
[2023-08-06 13:16] VITALS: BP 143/97; PULSE 64; RESP 18; O2SAT 100
[2023-08-06 13:21] VITALS: BP 145/97; PULSE 62; RESP 18; O2SAT 100
[2023-08-06 13:26] VITALS: BP 144/97; PULSE 66; RESP 16; O2SAT 100
[2023-08-06] MEDS: oxyCODONE HCl Immed Release 5 MG TABLET PO (13:28)
[2023-08-06] MEDS: Acetaminophen 325 MG TABLET 650 MG PO (13:28)
[2023-08-06 13:41] VITALS: BP 141/92; PULSE 61; RESP 16; TEMP 36.5; O2SAT 100
== END 2023-08-06 13:55 | disposition home or self-care (01) ==
PROVIDERS: PCP Internal Medicine; Visit Provider Obstetrics & Gynecology
PROC: 0UDB8ZZ Extraction of Endometrium, Via Natural or Artificial Opening Endoscopic (ICD-10-PCS; CPT 58558; principal; 2023-08-06 13:20)
DX: N93.9 Abnormal uterine and vaginal bleeding, unspecified (principal); N84.0 Polyp of corpus uteri; Z86.001 Personal history of in-situ neoplasm of cervix uteri; E55.9 Vitamin D deficiency, unspecified; J45.909 Unspecified asthma, uncomplicated; E66.9 Obesity, unspecified; Z68.30 Body mass index [BMI] 30.0-30.9, adult; Z87.891 Personal history of nicotine dependence
CPT/HCPCS: 58558; 81025; 88305; J1100; J1885; J2250; J2405; J2704; J3010

== ENCOUNTER → 2023-08-06 10:41 | Outpatient (BNV) | payer OTHER, SELFPAY | PROVIDERS: PCP Internal Medicine; Visit Provider Obstetrics & Gynecology | DX: N93.9 Abnormal uterine and vaginal bleeding, unspecified (principal) | CPT/HCPCS: 58558 ==

== ENCOUNTER 2023-08-19 09:27 | Outpatient (AMB) | payer OTHER, SELFPAY ==
[2023-08-19 09:29] VITALS: BP 120/82; BMI 31.2
--- NOTE | 2023-08-19 09:29 | MHC.OFFVIS ---
Intake Vital Signs 08/19/23 09:29 Height 5 ft 1 in Weight 165 lb BMI 31.2 BP 120/82 Intake Visit Reasons: post op Facilities Operator Required: No Allergies shellfish derived Allergy (Unknown, Verified 08/19/23 09:31) Hives HPI HPI Comments History of Present Illness Details The patient is presenting post hysteroscopy D&C no complaints minimal vaginal bleeding no feverishness chills or abdominal pain. The pathology showed the following: Benign inactive to weakly proliferative endometrium with glandular and stromal breakdown; no atypia or carcinoma Office EMB pathology showed the following: Benign proliferative endometrium with one fragment suggestive of benign endometrial polyp; no atypia or carcinoma Pelvic ultrasound showed the following: Uterus: The uterus is anteverted and measures 10.1 x 4.6 x 5.9 cm. The double wall endometrial thickness is 1.0 mm. The uterus is smooth in contour and has normal myometrial echogenicity. No visible fibroid. At the level of the section scar, a 1.7 x 0.9 x 1.4 cm simple cyst is seen. On the ultrasound examination of 09/21/2017, this measured 1.3 x 0.8 x 1.1 cm. Nabothian cysts are seen within the cervix. Adnexa: Both ovaries are visualized. There is normal color flow to the adnexa. There is no ovarian torsion. There is no pelvic ascites or fluid collection. There is prominent left adnexal vasculature. Right ovary measures 2.6 x 1.3 x 1.5 cm, volume 2.8 mL. A 1.2 x 1.1 x 1.3 cm right ovarian corpus luteum cyst is seen. This requires no imaging follow-up. Left ovary measures 3.3 x 1.9 x 1.9 cm, volume 6.0 mL. Last co testing was negative in 05/30 Last screening mammogram was in 07/03 was BI-RADS 1 GC/CT were negative CBC, TSH, prolactin hCG were not done yet [facility] Medical History Breast cancer screening by mammogram Colon cancer screening Vitamin D deficiency Obesity (BMI 30-39.9) BRY III (cervical intraepithelial neoplasia grade III) with severe dysplasia Asthma Surgical History History of hysteroscopy History of ankle surgery H/O LEEP History of section Family History Father Colon cancer Mother No problems noted. 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 Sexual orientation: Straight/Heterosexual Gender identity: Female Cognitive needs: No Hearing needs: No Vision needs: No Female Reproductive History Menstrual Age of Menarche: 14 control method: none Review of Systems Const All systems reviewed & are unremarkable except as noted in HPI and below Reports as per HPI and Reports no additional complaints GI Reports no additional complaints Reports no additional complaints Physical Exam Vital Signs: Last Vital Signs BP 120/82 08/19/23 09:29 BMI result Body Mass Index 31.2 Assessment & Plan Assessment & Plan (1) Abnormal uterine bleeding: Code(s): N93.9 - Abnormal uterine and vaginal bleeding, unspecified Plan: Instructed the patient to have her blood drawn meir Discussed with the patient the results of the work up done and options of treatment including but not limited to BCP's, cyclic Progesterone, Mirena IUD, endometrial ablation and hysterectomy. All pros, cons, risks and benefits of each option were discussed with the patient and the patient decided to go ahead with cyclic Provera, so a more detailed discussion re: Progesterone treatment including mechanism of action, benefits (regular menses, endometrial protection form unopposed estrogen and reduction in the risk of endometrial hyperplasia and/or cancer ...), risks (Thrombosis, mood changes, weight gain, breast soreness, ? increased breast ca, others). Instructions were given to use a back- up method for contraception since this is not a method control, take the medication 1 tablet daily starting day 15-24 and to schedule a 3 months follow-up appointment; patient verbalized understanding and agreed with the plan. Coding Level of Care Code Est Pt Level 3 (70369) Diagnoses Abnormal uterine bleeding N93.9
== END 2023-08-19 09:53 | disposition home or self-care (01) ==
PROVIDERS: PCP Internal Medicine; Visit Provider Obstetrics & Gynecology
DX: N93.9 Abnormal uterine and vaginal bleeding, unspecified (principal)
CPT/HCPCS: 99213

== ENCOUNTER → 2023-08-19 09:27 | Outpatient (BNVA) | payer OTHER, SELFPAY | PROVIDERS: PCP Internal Medicine; Visit Provider Obstetrics & Gynecology ==

== ENCOUNTER 2023-08-20 12:14 | Outpatient (REF) | payer OTHER, SELFPAY ==
[2023-08-20 12:50] LABS: Hematocrit 37.9 % (37.0-47.0); Hemoglobin 12.6 g/dl (12.0-16.0); Mean Corpuscular HGB Conc 33.2 g/dl (31.0-35.0); Mean Corpuscular Hemoglobin 29.4 pg (27.0-33.0); Mean Corpuscular Volume 88.6 fL (80.0-98.0); Mean Platelet Volume 10.8 fL (9.4-12.3); Platelet Count 276 X10*3/uL (160-400); Red Blood Count 4.28 X10*6/uL (4.20-5.50); Red Cell Distribution Width 13.2 % (11.0-16.0); White Blood Count 5.8 X10*3/uL (4.8-10.8)
[2023-08-20 13:45] LABS: HCG Quantitative < 2 mIU/mL; TSH reflex Free T4 0.68 uIU/mL (0.32-4.0)
[2023-08-21 07:48] LABS: Follicle Stimulating Hormone 37.5 mIU/mL; Lutenizing Hormone 33.1 mIU/mL; Prolactin 6.8 ng/mL
== END 2023-08-20 12:15 | disposition home or self-care (01) ==
LOC: HO.LAB 12:14
PROVIDERS: PCP Internal Medicine; Visit Provider Obstetrics & Gynecology
DX: N93.9 Abnormal uterine and vaginal bleeding, unspecified (principal)
CPT/HCPCS: 36415; 83001; 83002; 84146; 84443; 84702; 85027

== ENCOUNTER 2024-05-03 09:32 | Emergency (ER) | payer OTHER, SELFPAY ==
[2024-05-03 09:38] VITALS: BP 144/90; PULSE 75; RESP 16; TEMP 36.6; O2SAT 100; BMI 31.1
--- NOTE | 2024-05-03 09:51 | PC.NURSE ---
pt a&ox3, pustual rash to rt mouth area, pt states it is 6/10 pain with tingling feeling as well.
--- NOTE | 2024-05-03 10:10 | ED.GENADULT ---
HPI - General Adult General Chief complaint: Skin/Abscess/Foreign Body Stated complaint: facial rash Time Seen by Provider: 05/03/24 09:52 Source: patient, RN notes reviewed and old records reviewed Mode of arrival: ambulatory History of Present Illness ED Provider: Malu Gamez PA-C HPI narrative: 44-year-old female with a past medical history of vitamin-D deficiency, asthma, presenting to the ED complaining of painful, tingling rash to right side of face/ mouth noted yesterday. States rash worsen this morning. Denies no new exposures including soap, lotion, detergent, medication. Does report history of cold sores in the past. Denies difficulty or inability to swallow /SOB. Related Data Previous Rx's ?Medication ?Instructions ?Recorded mupirocin 2 % topical ointment 1 appl topical BID 5 days #22 grams 05/03/24 valacyclovir 1 gram tablet 1,000 mg PO BID 7 days #14 tabs 05/03/24 (Valtrex) Allergies Allergy/AdvReac Type Severity Reaction Status Date / Time shellfish derived Allergy Unknown Hives Verified 05/03/24 09:40 Review of Systems Review of Systems: Yes all other systems are reviewed and are negative Constitutional: Constitutional: Reports as per [facility] Past Medical History Attestation statement: The following information was validated with the patient. 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 One lesion to left side of face. uvula midline. Talking in complete sentences. Palm or sole involvement Head: Yes normal to inspection and Yes atraumatic Ears: hearing grossly normal bilaterally General nose exam: Normal external nose present Face and sinus: Yes normal facial exam Mouth: no drooling Eyes General: appearance normal, both eyes and all related structures EOM: EOMs intact bilaterally Neck Neck: Yes normal visual inspection and Yes no meningeal signs Resp Effort & Inspection: normal respiratory effort, no respiratory distress and no stridor Cardio Rate: regular rate Skin Wounds: no wounds Neuro General: patient oriented x3, tone normal and no meningeal signs Cranial nerves: Yes CN's II-XII intact bilaterally Gait exam (Neuro): Normal gait present Extrem General: Yes normal to inspection Medical Decision Making Medical Decision Making MDM Narrative: 44-year-old female with a past medical history of vitamin-D deficiency, asthma, presenting to the ED complaining of painful, tingling rash to right side of face/ mouth noted yesterday. On exam VSS, NAD, nontoxic appearing, PE as above concerning for Herpes infection vs impetigo vs Zoster > although of lower suspicion with midline crossing. Low suspicion for cellulites at this time. No evidence of SJS/TENS Plan: PO antivirals & Mupirocin, PCP f/u Case discussed with ED attending Dr. Adorno who also evaluated patient and is in agreement with plan Please refer to course for remaining clinical decision making, interpretation of labs/imaging results, and discussions with consultants and/or family members. Results discussed with patient including worrisome signs and symptoms and strict return precautions, and when to return to the emergency department. They verbalized understanding and feel safe for discharge at this time. Differential Diagnosis Differential Diagnoses: The differential diagnosis associated with the presentation includes As above External Record Review External record reviewed: Inpatient record, Office record, Outpatient record, Prior outpatient labs, Prior outpatient radiology, Primary care record and Outside ED record Tests considered The following testing was considered but not selected: As above Prescription Management I considered prescription management with: Antiviral and Antibiotic Chronic Conditions Patient?s care impacted by: Other Social Determinants Patient?s care significantly limited by Social Determinants of Health including: Other Social Determinant of Health Discharge Plan Discharge Clinical Impression: Herpes simplex Patient Disposition: Home, Self-Care Instructions: Oral Herpes Simplex Virus Infections (ED) Additional Instructions: Valtrex as an antiviral medication, please take as prescribed mupirocin as a topical antibiotic ointment and please apply to rash only You are contagious until rash crusted over. Avoid touching the area. Wash her hands If rash gets worse, spreads, you have fever, difficulty or inability to swallow return to the ED immediately Follow up with her doctor Prescriptions: New valacyclovir [Valtrex] 1 gram tablet 1,000 mg PO BID 7 Days Qty: 14 0RF mupirocin 2 % ointment 1 appl topical BID 5 Days Qty: 22 0RF Referrals: Po,Lazaro Bradshaw MD [Primary Care Provider] - 1 week Print Language: Sami
[2024-05-03 10:26] VITALS: BP 140/86; PULSE 72; RESP 16; TEMP 36.6; O2SAT 100
== END 2024-05-03 10:27 | disposition home or self-care (01) ==
PROVIDERS: Emergency Provider Emergency Medicine; PCP Internal Medicine
DX: B00.9 Herpesviral infection, unspecified (principal); R21 Rash and other nonspecific skin eruption; Z87.891 Personal history of nicotine dependence
CPT/HCPCS: 99282; 99283

== ENCOUNTER 2024-06-16 13:15 | Outpatient (AMB) | payer OTHER, SELFPAY ==
--- NOTE | 2024-06-16 13:34 | MHC.PC.OV ---
Vital Signs 06/16/24 13:35 Height 5 ft 1 in Weight 170 lb 4 oz BMI 32.2 BP 122/74 Blood Pressure Location Lt brachial Position Sitting Pulse 64 Pulse Source Pulse Oximeter Temp 97.5 F Temp Source Skin Pulse Oximetry (%) 100 Oxygen Delivery Method Room Air Intake Visit Reasons: Annual Exam Intake Note: Patient is here today for a physical. Veterinary Pharmacologist Required: No Administrative Director: Not Required per policy Accompanied by: Self / Same As Patient Allergies shellfish derived Allergy (Unknown, Verified 06/16/24 13:35) Hives Tobacco use date assessed: 06/16/24 Dental Screening Dental Screen Date: 06/16/24 Did you have a dental visit in the last 12 months?: Yes Did you have a dental problem in the last 6 months where you did not have access to dental care?: No Was dental information given to patient?: Patient has dentist HPI Annual Exam HPI Details The patient is a 44-year-old female presenting for a wellness examination and management of menorrhagia. The patient reports heavy menstrual bleeding occurring approximately twice a month. This symptom began several months ago and persists despite previous intervention with a diagnostic hysteroscopy with dilation and curettage in July 2023. The bleeding pattern remains irregular and is described as significantly affecting her quality of life. She has no new symptoms such as dizziness or passing out accompanying her chronic condition. Furthermore, the patient was last seen in June 2023 for a physical examination and had her most recent mammogram in July 2023. Her last colonoscopy was performed in 2021, with normal findings reported. She has a significant family history, noting her father was diagnosed with colon cancer early. Her health screenings, including blood work completed in August, show normal renal, liver, and glucose function, but reveal deficiencies in vitamin D and vitamin B12. Additionally, she manages her current obesity through a stable wellness plan focusing on diet and exercise. The patient has a history of asthma, which has been asymptomatic with no recent exacerbations or need for medication since childhood. There is no current treatment for the patient's herpes simplex virus outbreaks beyond topical medication use, and episodes often coincide with menstrual cycles. - Plans to administer influenza vaccination today - Discussion on mammogram screening with last update in July 2023 - Colon cancer screening referred back to 2021 with upcoming needs scheduled for 2026 - Recent blood work checked in August revealing normal findings except for low vitamin D and B12 - Discussion of healthy lifestyle including adequate water intake, healthy diet, and exercise through walking and regular activity - Patient engages in regular exercise, primarily walking her dog - Alcohol consumption limited to weekends, consisting of a couple of glasses of wine - No use of tobacco or recreational drugs - Constitutional: Denies fever, dizziness, nausea, vomiting - Respiratory: Denies shortness of breath, sleep disturbance due to breath trouble - Cardiovascular: Denies chest pain or irregular heartbeats - Gastrointestinal: Reports regular bowel movements without constipation or diarrhea - Genitourinary: Denies urinary issues; wakes once or twice at night for urination if consuming lots of fluids - Neurological: Denies recent headaches, vision changes except for close-up print difficulty managed with reading glasses - Labs: Vitamin D and Vitamin B12 reported low in recent blood work - Screening: Last mammogram in July 2023; last colonoscopy in 2021 [facility] Medical History (Updated 06/16/24 @ 13:57 by Lazaro Stark MD) Herpes simplex Breast cancer screening by mammogram Colon cancer screening Vitamin D deficiency Obesity (BMI 30-39.9) BRY III (cervical intraepithelial neoplasia grade III) with severe dysplasia Asthma Surgical History History of hysteroscopy History of ankle surgery H/O LEEP History of section Family History Father Colon cancer Mother No problems noted. 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 1. Little interest or pleasure in doing things: not at all 2. Feeling down, depressed, or hopeless: not at all 3. Trouble falling or staying asleep, or sleeping too much: not at all 4. Feeling tired or having little energy: not at all 5. Poor appetite or overeating: not at all 6. Feeling bad about yourself - or that you are a failure or have let yourself or your family down: not at all 7. Trouble concentrating on things, such as reading the newspaper or watching television: not at all 8. Moving or speaking so slowly that other people could have noticed. Or the opposite - being so fidgety or restless that you have been moving around a lot more than usual: not at all 9. Thoughts that you would be better off or of hurting yourself in some way: not at all Total score: 0 Depression Screening Interpretation: Negative Depression Screening Done: Yes Source: Developed by Drs. Kavon Cobb, Simona Lagunas, Keegan Whyte and colleagues, with an educational latasha from [employer]. Thrive Questionnaire Date Thrive assessed: 06/16/24 I am a: Patient What is your living situation today?: I have a steady place to live Within the past 12 months, did the food you bought not last and you didn't have the money to get more?: I choose not to answer this question Within the past 12 months, did you worry whether your food would run out before you got money to buy more?: I choose not to answer this question Do you have trouble paying for medicines?: No Do you have trouble getting transportation to medical appointments?: No Do you have trouble paying your heating and electricity bill?: I choose not to answer this question Do you have trouble taking care of your child, family member or friend?: No Do you have trouble with day-to-day activities such as bathing, preparing meals, shopping, managing finances, etc.?: No Are you currently unemployed and looking for a job?: No Are you interested in more education?: No Please select the resources that you would like help with: None Currently or been in a relationship where the following occur: No concerns reported THRIVE Score: 0 AUDIT C Alcohol Use Questionnaire (AUDIT-C) 1. How often do you have a drink containing alcohol?: 2-4 times a month 2. How many drinks containing alcohol do you have on a typical day when you are drinking?: 1 or 2 3. How often do you have six or more drinks on one occasion?: Less than monthly Total Score: 3 ROBERTO CARLOS-7 AMB Questionnaire ROBERTO CARLOS-7 Date ROBERTO CARLOS - 7 assessed: 06/16/24 Feeling nervous, anxious, or on edge: 0 = Not at all Not being able to stop or control worryin = Not at all Worrying too much about different things: 0 = Not at all Trouble relaxin = Not at all Being so restless that it is hard to sit still: 0 = Not at all Becoming easily annoyed or irritable: 0 = Not at all Feeling afraid as if something awful might happen: 0 = Not at all Total ROBERTO CARLOS-7 score (0-4 normal; 5-9 mild; 10-14 moderate; 15-21 severe): 0 Source: Developed by Drs. Kavon Cobb, Simona Lagunas, Keegan Whyte and colleagues, with an educational latasha from [employer]. Review of Systems Const Denies poor appetite and Denies weakness Eyes Denies no additional complaints ENT Reports Normal hearing present, Denies dizziness, Denies nasal congestion, Denies tinnitus and Denies sore throat Card Denies chest pain, Denies syncope, Denies rapid heart rate and Denies dyspnea Resp Denies cough and Denies dyspnea GI Denies change in stool character, Reports constipation, Denies diarrhea, Denies nausea and Denies vomiting Denies urinary frequency, Denies difficulty voiding and Denies dysuria Neuro Reports Normal hearing present, Denies confusion, Denies dizziness, Denies syncope and Denies weakness Psych Denies confusion Physical exam (Primary Care) Vital Signs: Last Vital Signs Temp 97.5 F 06/16/24 13:35 Pulse 64 06/16/24 13:35 BP 122/74 06/16/24 13:35 Pulse Ox 100 06/16/24 13:35 Oxygen Delivery Method Room Air 06/16/24 13:35 BMI result Body Mass Index 32.2 Tobacco/Smoking Status: Tobacco use Status Tobacco use date assessed 06/16/24 06/16/24 13:40 Patient Tobacco Use Status Former Tobacco user 06/16/24 13:47 Tobacco use type Cigarette 06/16/24 13:47 e-Cigarette/Vaping Use Never Used 06/16/24 13:47 PHQ-9: PHQ-9 Score PHQ-9: Total score 0 06/16/24 13:44 Depression Screening Interpretation: Negative Thrive Assessment: Date of Thrive Assessment Date Thrive assessed 06/16/24 06/16/24 13:40 Currently or been in a relationship where the following occur: No concerns reported Const General: No confusion Orientation/consciousness: No confusion HENMT Head: Yes normocephalic Ears: external ears normal and TM's normal bilaterally Face and sinus: Yes normal facial exam Mouth: moist mucous membranes Throat: Yes tonsils normal Eyes Conjunctivae: conjunctivae normal Pupils: Equal, round and reactive pupils present and Pupil accommodation reflex normal Direct Ophthalmoscopy: normal light reflex Neck Neck: No lymphadenopathy Thyroid: Thyroid normal Chest Chest palpation & inspection: normal inspection of the chest Resp Effort & Inspection: normal respiratory effort and no audible wheezes Auscultation: clear to auscultation bilaterally, no crackles, no wheezes and lung sounds not diminished Cardio Rate: regular rate Rhythm: regular rhythm Peripheral pulses: radial pulses present and dorsalis pedis present GI Palpation (GI): no masses Auscultation: normal bowel sounds and normoactive bowel sounds Rectal Exam - Female: deferred Skin General skin exam: no rashes or lesions noted Rashes: no rashes Neuro General: No confusion Cranial nerves: Yes Equal, round and reactive pupils present and Yes Normal hearing present Cognition (Neuro): normal cognition Gait exam (Neuro): Normal gait present Motor exam (neuro): 5/5 motor strength present throughout Deep tendon reflexes (DTR's): Right brachioradialis reflex intensity grade: 2+, Left brachioradialis reflex intensity grade: 2+, Right patellar reflex intensity grade: 2+ and Left patellar reflex intensity grade: 2+ Extrem General: No edema Coding Level of Care Code Est Pt Prev Care 40-64y(68560) Diagnoses Annual physical exam Z00.00 Obesity (BMI 30-39.9) E66.9 Asthma J45.909 Family history of malignant neoplasm of colon in relative diagnosed when younger than 50 years of age Z80.0 Herpes simplex B00.9 Assessment & Plan Assessment & Plan (1) Annual physical exam: Code(s): Z00.00 - Encounter for general adult medical examination without abnormal findings Category: Medical Plan: Patient is advised to eat healthy, keep well hydrated, keep active and have adequate sleep. (2) Obesity (BMI 30-39.9): Code(s): E66.9 - Obesity, unspecified Category: Medical Plan: Diet and exercise (3) Asthma: Code(s): J45.909 - Unspecified asthma, uncomplicated Category: Medical Plan: Stable (4) Family history of malignant neoplasm of colon in relative diagnosed when younger than 50 years of age: Comment: Father at age 38 colorectal cancer colonoscopy November 2021 Code(s): Z80.0 - Family history of malignant neoplasm of digestive organs Category: Medical Plan: Last colonoscopy is 2021 5 year (5) Herpes simplex: Code(s): B00.9 - Herpesviral infection, unspecified Category: Medical Plan - Menorrhagia management continues with hematological evaluation, reassess thyroid function, and further gynecological follow-up if symptoms persist - Vitamin D and supplementation discussed to address identified deficiencies - Herpes simplex virus outbreaks to be managed with valacyclovir, 1 g once daily for 5 days, with a focus on early intervention upon prodrome - Administer influenza vaccination today as part of preventive care - Follow preventive care measures including balanced diet and regular exercise to address obesity During this visit, we discussed the patient's ongoing menorrhagia and its impact on her quality of life. We reviewed previous interventions, current management, and the need for continued monitoring, and further diagnostic follow-up was advised. Regarding herpes simplex virus management, I have instructed the patient on starting antiviral treatment at the onset of symptoms to reduce the severity and duration of outbreaks. We discussed risks and benefits associated with vitamin supplementation for her vitamin D and B12 deficiencies. I advised on the continuation of lifestyle modifications including a healthy diet and physical activity to manage her obesity effectively. Lastly, we reviewed the importance of staying up to date with her health screenings, notably mammograms and colonoscopies, in light of her family history of colon cancer. I explained the importance of receiving an influenza vaccination given the ongoing flu season and agreed to administer it today. - Continue taking prescribed Valacyclovir at the first sign of an outbreak - Start vitamin D and B12 supplements as recommended - Maintain a balanced diet, adequate exercise, and hydration to support general health - Schedule regular health screenings and follow up with gynecological care - Proceed with influenza vaccination today - Monitor any changes in symptoms and report new or worsening symptoms promptly Orders: Orders Comprehensive Met. Panel Today R73.02 - Impaired glucose tolerance (oral) Thyroid Stimulating Hormone Today R73.02 - Impaired glucose tolerance (oral) Vitamin B12 and Folate Today R73.02 - Impaired glucose tolerance (oral) Vitamin D 25-OH Total Today R73.02 - Impaired glucose tolerance (oral) Hemoglobin A1c Today R73.02 - Impaired glucose tolerance (oral) Complete Blood Count Auto Diff Today R73.02 - Impaired glucose tolerance (oral) Lipid Panel Today E78.00 - Pure hypercholesterolemia, unspecified, R73.02 - Impaired glucose tolerance (oral) Free T4 (Free Thyroxine) Today R73.02 - Impaired glucose tolerance (oral) Medications: New valacyclovir 1,000 mg PO DAILY 5 tabs 2RF B00.9 - Herpesviral infection, unspecified
[2024-06-16 13:35] VITALS: BP 122/74; PULSE 64; TEMP 36.4; O2SAT 100; BMI 32.2
== END 2024-06-16 14:06 | disposition home or self-care (01) ==
PROVIDERS: PCP Internal Medicine; Visit Provider Internal Medicine
DX: Z00.00 Encounter for general adult medical examination without abnormal findings (principal); E66.9 Obesity, unspecified; Z68.32 Body mass index [BMI] 32.0-32.9, adult; J45.909 Unspecified asthma, uncomplicated; Z80.0 Family history of malignant neoplasm of digestive organs; B00.9 Herpesviral infection, unspecified; Z23 Encounter for immunization

== ENCOUNTER → 2024-06-16 13:15 | Outpatient (BNVA) | payer OTHER, SELFPAY | PROVIDERS: PCP Internal Medicine; Visit Provider Internal Medicine | DX: Z00.00 Encounter for general adult medical examination without abnormal findings (principal); Z23 Encounter for immunization; E66.9 Obesity, unspecified; Z68.32 Body mass index [BMI] 32.0-32.9, adult; J45.909 Unspecified asthma, uncomplicated; B00.9 Herpesviral infection, unspecified; Z80.0 Family history of malignant neoplasm of digestive organs | CPT/HCPCS: 90471; 90656; 96127 ==

== ENCOUNTER 2024-07-05 11:38 | Emergency (ER) | payer OTHER, SELFPAY ==
[2024-07-05 11:47] VITALS: BP 127/90; PULSE 68; RESP 18; TEMP 36.6; O2SAT 98; BMI 32.0
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
== END 2024-07-05 14:37 | disposition home or self-care (01) ==
LOC: HO.ED 14:28
PROVIDERS: Emergency Provider Internal Medicine; PCP Internal Medicine
DX: S39.012A Strain of muscle, fascia and tendon of lower back, initial encounter (principal); V43.52XA Car driver injured in collision with other type car in traffic accident, initial encounter; Y93.89 Activity, other specified; Y92.410 Unspecified street and highway as the place of occurrence of the external cause; Y99.9 Unspecified external cause status
CPT/HCPCS: 99281; 99283

== ENCOUNTER 2024-07-06 08:57 | Outpatient (REF) | payer OTHER, SELFPAY | END 2024-07-06 08:58 | disposition home or self-care (01) | LOC: HO.MAMMO 08:57 | PROVIDERS: PCP Internal Medicine; Visit Provider Internal Medicine | DX: Z12.31 Encounter for screening mammogram for malignant neoplasm of breast (principal) | CPT/HCPCS: 77063; 77067 ==

== ENCOUNTER → 2024-07-06 09:00 | Outpatient (BNV) | payer OTHER, SELFPAY | PROVIDERS: PCP Internal Medicine; Visit Provider Internal Medicine | DX: Z12.31 Encounter for screening mammogram for malignant neoplasm of breast (principal) | CPT/HCPCS: 77063; 77067 ==

== ENCOUNTER 2024-07-14 14:43 | Outpatient (AMB) | payer OTHER, SELFPAY ==
[2024-07-14 15:04] VITALS: BP 122/78; PULSE 60; RESP 14; TEMP 36.5; O2SAT 97; BMI 32.4
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
== END 2024-07-14 15:46 | disposition home or self-care (01) ==
PROVIDERS: PCP Internal Medicine; Visit Provider Internal Medicine
DX: M54.50 Low back pain, unspecified (principal); V89.2XXA Person injured in unspecified motor-vehicle accident, traffic, initial encounter; Z04.3 Encounter for examination and observation following other accident; R73.02 Impaired glucose tolerance (oral)

== ENCOUNTER → 2024-07-14 14:43 | Outpatient (BNVA) | payer OTHER, SELFPAY | PROVIDERS: PCP Internal Medicine; Visit Provider Internal Medicine | DX: M54.50 Low back pain, unspecified (principal); R73.02 Impaired glucose tolerance (oral) | CPT/HCPCS: 83036; 96127 ==

== ENCOUNTER 2024-08-09 09:25 | Outpatient (REF) | payer OTHER, SELFPAY ==
[2024-08-09 10:55] LABS: Hematocrit 37.4 % (37.0-47.0); Mean Corpuscular HGB Conc 32.1 g/dl (31.0-35.0); Mean Corpuscular Hemoglobin 28.5 pg (27.0-33.0); Mean Corpuscular Volume 88.8 fL (80.0-98.0); Mean Platelet Volume 10.4 fL (9.4-12.3); Platelet Count 295 X10*3/uL (160-400); Red Blood Count 4.21 X10*6/uL (4.20-5.50); Red Cell Distribution Width 13.2 % (11.0-16.0); White Blood Count 6.5 X10*3/uL (4.8-10.8)
[2024-08-09 12:17] LABS: HCG Quantitative < 2 mIU/mL
[2024-08-09 16:33] LABS: CT PCR NOT DETECTED (Not Detect.); NG PCR NOT DETECTED (Not Detect.)
[2024-08-16 15:09] LABS: HPV Genotype 16 Negative (Negative); HPV Genotype 18 Negative (Negative); HPV High Risk Positive (Negative)
== END 2024-08-09 09:26 | disposition home or self-care (01) ==
LOC: HO.LAB 09:25
PROVIDERS: PCP Internal Medicine; Visit Provider Obstetrics & Gynecology
DX: Z01.419 Encounter for gynecological examination (general) (routine) without abnormal findings (principal); N93.9 Abnormal uterine and vaginal bleeding, unspecified; R87.612 Low grade squamous intraepithelial lesion on cytologic smear of cervix (LGSIL); R87.810 Cervical high risk human papillomavirus (HPV) DNA test positive
CPT/HCPCS: 84443; 84702; 85027; 87491; 87591; 87626; 88175

== ENCOUNTER 2024-08-09 09:25 | Outpatient (AMB) | payer OTHER, SELFPAY ==
[2024-08-09 09:27] VITALS: BP 116/74; BMI 32.4
--- NOTE | 2024-08-09 09:27 | MHC.OFFVIS ---
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 Complaining of irregular menstrual cycles over the last few months Last Pap/HPV was negative in 05/30 Last Mammogram was BI-RADS 1 in 07/04 [facility] Medical History Herpes simplex Breast cancer screening by mammogram Colon cancer screening Vitamin D deficiency Obesity (BMI 30-39.9) BRY III (cervical intraepithelial neoplasia grade III) with severe dysplasia Asthma Surgical History History of hysteroscopy History of ankle surgery H/O LEEP History of section Family History Father Colon cancer Mother No problems noted. 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 Sexual orientation: Straight/Heterosexual Gender identity: Female Cognitive needs: No Hearing needs: No Vision needs: No Female Reproductive History Menstrual Age of Menarche: 14 Date of last menstrual period: 07/29/24 Date of last pap smear: 05/30/20 Date of Mammogram: 07/06/24 Review of Systems Const All systems reviewed & are unremarkable except as noted in HPI and below Card Reports as per HPI Resp Reports as per HPI GI Reports as per HPI and Reports no additional complaints Reports as per HPI Physical Exam Vital Signs: Last Vital Signs BP 116/74 08/09/24 09:27 BMI result Body Mass Index 32.4 Const General: cooperative, healthy appearing and comfortable Chest Chest palpation & inspection: normal inspection of the chest and normal palpation of entire chest wall Breast/axilla inspection: normal inspection of the breasts and normal inspection of the axillae Breast/axilla palpation: normal palpation of the breasts, normal palpation of the axillae and no axillary lymphadenopathy Resp Effort & Inspection: normal respiratory effort Auscultation: clear to auscultation bilaterally Percussion: percussion normal Cardio Palpation: normal PMI Rate: regular rate Rhythm: regular rhythm Heart sounds: no murmurs and no rubs Peripheral pulses: Peripheral pulses 2+ throughout GI Inspection: Yes normal to inspection Palpation (GI): Soft to palpation, nontender, no guarding, not rigid and No hepatosplenomegaly present Percussion: Yes normal to percussion Auscultation: normal bowel sounds Rectal Exam - Female: deferred General: Yes bladder normal to palpation External Female Exam: No lesion Speculum Exam - Vagina: normal appearance of the vagina, normal palpation, normal vaginal discharge and not erythematous Speculum Exam - Cervix: normal appearance of the cervix and normal palpation Bimanual exam- vagina & uterus: normal bimanual exam, normal palpation, uterine size normal, bladder normal to palpation, consistency normal and normal palpation Bimanual Exam- Adnexa, other: normal adnexae, no masses and no tenderness Assessment & Plan Assessment & Plan (1) Well woman exam: Comment: History of BRY 3 status post LEEP in 2017 Code(s): Z01.419 - Encounter for gynecological examination (general) (routine) without abnormal findings Category: Medical Plan: Cotesting done. Instructions given the patient to schedule next screening Mammogram in 07/05. Counseled the patient about the recommended dietary allowance of 1000 mg of Calcium & 600 IU of vitamin D. The patient was instructed to perform monthly self-breast exams and to schedule an annual exam in a year; All questions answered and the patient verbalized understanding. Instructed the patient to schedule annual exam in a year (2) Abnormal uterine bleeding: Code(s): N93.9 - Abnormal uterine and vaginal bleeding, unspecified Category: Medical Plan: Co testing done, GC and chlamydia taken CBC, TSH, HCG, and pelvic ultrasound ordered. Discussed with the patient the different causes of abnormal bleeding including thyroid disorders, uterine and ovarian pathology, endometrial hyperplasia, carcinoma and other potential causes. Discussed with the patient the work up including CBC (to r/o anemia), TSH, pelvic Ultrasound, endometrial biopsy to r/o endometrial pathology. All questions answered and the patient verbalized understanding. Instructed the patient to schedule an appointment for an endometrial biopsy in 2 weeks. Orders: Orders US pelvic and transvaginal Today N93.9 - Abnormal uterine and vaginal bleeding, unspecified Complete Blood Count no Diff Today N93.9 - Abnormal uterine and vaginal bleeding, unspecified TSH reflex Free T4 Today N93.9 - Abnormal uterine and vaginal bleeding, unspecified HCG Quantitative Today N93.9 - Abnormal uterine and vaginal bleeding, unspecified Coding Level of Care Code Est Pt Level 3 (80395) Est Pt Prev Care 40-64y(71719) Diagnoses Well woman exam Z01.419 Abnormal uterine bleeding N93.9
== END 2024-08-09 09:46 | disposition home or self-care (01) ==
PROVIDERS: PCP Internal Medicine; Visit Provider Obstetrics & Gynecology
DX: Z01.419 Encounter for gynecological examination (general) (routine) without abnormal findings (principal); N93.9 Abnormal uterine and vaginal bleeding, unspecified
CPT/HCPCS: 99213; 99396; 99459

== ENCOUNTER 2024-09-06 08:14 | Outpatient (REF) | payer OTHER, SELFPAY | END 2024-09-06 08:15 | disposition home or self-care (01) | LOC: HO.LNP 08:14 | PROVIDERS: PCP Internal Medicine; Visit Provider Obstetrics & Gynecology | DX: R87.612 Low grade squamous intraepithelial lesion on cytologic smear of cervix (LGSIL) (principal); N93.9 Abnormal uterine and vaginal bleeding, unspecified; Z32.02 Encounter for pregnancy test, result negative; Z72.89 Other problems related to lifestyle | CPT/HCPCS: 57454; 58110; 81025; 88305; 88341; 88342 ==

== ENCOUNTER 2024-09-06 08:14 | Outpatient (AMB) | payer OTHER, SELFPAY ==
--- NOTE | 2024-09-06 08:18 | MHC.OFFVIS ---
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: Music Video Producer Present (Chandni GARCÍA) Accompanied by: Self / Same As Patient Allergies shellfish derived Allergy (Unknown, Verified 09/06/24 08:26) Hives Is last menstrual period known: Yes Last menstrual period: 08/04/24 HPI Comments Details: Presenting for abnormal Pap showing low-grade FRANDY can not rule out high-grade FRANDY, HPV positive, HPV 16/18 negative, endometrial cells present [facility] Medical History Herpes simplex Breast cancer screening by mammogram Colon cancer screening Vitamin D deficiency Obesity (BMI 30-39.9) BRY III (cervical intraepithelial neoplasia grade III) with severe dysplasia Asthma Surgical History History of hysteroscopy History of ankle surgery H/O LEEP History of section Family History Father Colon cancer Mother No problems noted. 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 We thoroughly discussed the procedure itself, including its details, alternatives, and all associated risks. This included but not limited to the following complications such as bleeding, infection, and injury to the vagina, bladder, and vessels, as well as the potential need for transfusion with all its associated risks. Subsequently, the patient sign the consent. Pap smear result: LSIL can not exclude high-grade FRANDY, HPV positive, HPV 16/18 negative Urine test in office = Negative Procedure: During the procedure, the following steps were performed: A speculum was inserted, and acetic acid was applied. Colposcopy was conducted, allowing visualization of the transformation zone. Acetowhite lesions were identified at the 3+4+11 o'clock position. Cervical biopsies were obtained from the 3+4+11o'clock position, followed by an endocervical curettage (ECC). Vaginoscopy of the upper vagina revealed 8 o'clock vaginal apex aceto-white lesions Vaginal apex biopsy taken from 8 o'clock vaginal apex aceto-white lesion Hemostasis was achieved using Monsel solution, and the patient tolerated the procedure well. Post-Procedure Instructions: The patient was advised to promptly contact the office or the after hours answering service or go to the emergency room if experiencing a temperature exceeding 100.4?F, abdominal pain, nausea/vomiting, or bleeding. Additionally, the patient was instructed to abstain from vaginal intercourse and bathtub use. The patient confirmed understanding of these instructions. Discharge Instructions: The patient was instructed to schedule a follow-up appointment in 2 weeks for further evaluation and management. 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 60938-Vpagrktngq of entire vagina with biopsy 86461-Zjmweelww of cervix including upper vagina with biopsy and ECC Procedure code (CPT) selection complete Endometrial Biopsy Details: The patient was counseled regarding the indication and benefits of endometrial sampling to rule out endometrial pathology including not limited to endometrial hyperplasia or endometrial cancer and others; The alternatives (Either do nothing vs. hysteroscopy D&C) & the risks were discussed with the patient including but not limited: pain, uterine perforation, bleeding, infection, possible injury to bladder, bowel, ureter, possible need for blood transfusion with all its possible risks. The patient verbalized understanding all questions answered and signed consent. Urine test done in the office was negative The patient was placed into the dorsal lithotomy position; a speculum was inserted in the vagina. Using aseptic technique for the procedure, the cervix was cleansed with Betadine. The anterior lip of the cervix was grasped with a single tooth tenaculum. The uterus was sounded to 7 cm with a 4 mm Pipelle was used. Tissues samples were obtained and placed in formalin, in a patient labeled container and sent to the pathology department. At the end of the procedure, there was minimal bleeding noted The patient tolerated the procedure well and was discharged in good condition with the following instructions: Nothing in the vagina until the bleeding stops. No sex until the bleeding stops, to call if any of the following occurs: fever (>100.4), flu-like symptoms, abdominal pain, heavy bleeding, four smelling vaginal discharge. The patient was instructed to schedule a Follow up appointment in 2 weeks to discuss pathology results of the biopsy and treatment options. This note was generated with a voice recognition program. Some errors may have been overlooked during the review of this note. Sometimes these errors may affect the content or meaning of a given sentence. 31456-Vwfymjadwya Biopsy Results AMB Test Urine AMB Test Urine Negative Last Edit by Chandni Madrigal CMA on 09/06/24 08:27 Results Reviewed Results Reviewed: Laboratory Last Values Tst Clinic Negative 09/06/24 08:26 Assessment & Plan Assessment & Plan (1) Low grade squamous intraepithelial lesion (LGSIL) at risk for high grade squamous intraepithelial lesion (HGSIL) on cytologic smear of cervix: Comment: Endometrial cells HPV high-risk positive, HPV 16/18 negative Code(s): R87.612 - Low grade squamous intraepithelial lesion on cytologic smear of cervix (LGSIL) Category: Medical Plan: Discussed with the patient the result of her abnormal pap, its significance, risk of progression, persistence, and regression. the false positive/negative rate of a Pap smear as a screening test in detecting cervical cancer and the indication for a diagnostic test -colposcopy, biopsy, endocervical curettage. In addition discussed with the patient the presence of endometrial cells with abnormal uterine bleeding is an indication for endometrial biopsy to rule out endometrial pathology including endometrial hyperplasia and/or malignancy The patient verbalized understanding and agreed with the plan, all questions answered. Colpo/biopsy/ECC with endometrial biopsy done, see procedure note Orders: Orders AMB HCG Urine Test Today Z32.02 - Encounter for test, result negative AMB Endometrial Biopsy Today N93.9 - Abnormal uterine and vaginal bleeding, unspecified, R87.612 - Low grade squamous intraepithelial lesion on cytologic smear of cervix (LGSIL) AMB Colposcopy Today R87.612 - Low grade squamous intraepithelial lesion on cytologic smear of cervix (LGSIL) Coding Level of Care Code Procedure Only Diagnoses Low grade squamous intraepithelial lesion (LGSIL) at risk for high grade squamous intraepithelial lesion (HGSIL) on cytologic smear of cervix R87.612 CPT Codes Colposcopy - CPT: 35851-Eidjwoqdyg of entire vagina with biopsy ([id number]) Colposcopy - CPT: 86157-Enchwrfaa of cervix including upper vagina with biopsy and ECC ([id number]) Endometrial Biopsy - CPT: 04974-Ifzwjccgixh Biopsy ([id number])
[2024-09-06 08:24] VITALS: BP 112/64; BMI 32.4
== END 2024-09-06 09:07 | disposition home or self-care (01) ==
LOC: HO.HWS 08:15
PROVIDERS: PCP Internal Medicine; Visit Provider Obstetrics & Gynecology
DX: R87.612 Low grade squamous intraepithelial lesion on cytologic smear of cervix (LGSIL) (principal); Z32.02 Encounter for pregnancy test, result negative
CPT/HCPCS: 57454; 58110

== ENCOUNTER 2024-09-12 11:21 | Outpatient (REF) | payer OTHER, SELFPAY ==
--- NOTE | ~2024-09-12 | US_ITS ---
CLINICAL HISTORY: N93.9 - Abnormal uterine and vaginal bleeding, unspecified US PELVIS TRANSVAGINAL WITH DOPPLER LIMITED Comparison: US/SR - US PELVIC AND TRANSVAGINAL - 06/15/23 14:49 EST Findings: Transvaginal scanning performed. The uterus measures 9.5 cm in length. There is a 1.0 x 0.7 x 0.9 cm left intramural fibroid. Again identified in the lower uterine segment, deep to the section scar is a lobulated cystic lesion which currently measures 1.9 x 1.1 x 1.1 cm, previously 1.7 x 0.9 x 1.4 cm. The endometrium measures 11 mm. Redemonstration of multiple nabothian cysts in the cervix. Right ovary 2.9 x 1.7 x 2.4 cm. 1.7 cm dominant follicle. Left ovary 3.1 x 1.6 x 2.2 cm. 1.7 cm dominant follicle. Normal color Doppler of both ovaries. Prominent left adnexal vessels. No free fluid. IMPRESSION: 1. Endometrial stripe thickness and echotexture are within normal limits. 2. 1.0 cm uterine fibroid. 3. Color flow in the bilateral ovaries which contain multiple follicles measuring up to 1.7 cm. 4. Stable cystic lesion in the lower uterine segment related to the section scar. 5. Prominent left adnexal vessels can be seen with pelvic congestion. 6. No free fluid. This document has been electronically signed by: Radha Molina DO on 09/13/2024 13:33:35
== END 2024-09-12 11:22 | disposition home or self-care (01) ==
LOC: HO.US 11:21
PROVIDERS: PCP Internal Medicine; Visit Provider Obstetrics & Gynecology
DX: N93.9 Abnormal uterine and vaginal bleeding, unspecified (principal)
CPT/HCPCS: 76830; 76856

== ENCOUNTER → 2024-09-12 11:22 | Outpatient (BNV) | payer OTHER, SELFPAY | PROVIDERS: PCP Internal Medicine; Visit Provider Radiology Diagnostic Radiology | DX: D25.9 Leiomyoma of uterus, unspecified (principal); N85.8 Other specified noninflammatory disorders of uterus | CPT/HCPCS: 76830; 76856 ==

== ENCOUNTER 2024-09-20 10:31 | Outpatient (AMB) | payer OTHER, SELFPAY ==
[2024-09-20 10:34] VITALS: BP 122/82; PULSE 75; O2SAT 98; BMI 30.7
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
== END 2024-09-20 11:06 | disposition home or self-care (01) ==
PROVIDERS: PCP Internal Medicine; Visit Provider Internal Medicine
DX: M54.50 Low back pain, unspecified (principal); V89.2XXA Person injured in unspecified motor-vehicle accident, traffic, initial encounter; Z04.3 Encounter for examination and observation following other accident

== ENCOUNTER 2024-09-20 10:31 | Outpatient (REF) | payer OTHER, SELFPAY ==
--- NOTE | ~2024-09-20 | XR_ITS ---
CLINICAL HISTORY: M54.50 - Low back pain, unspecified Lumbar spine three views Comparison: None Findings: No acute fracture or dislocation. Posterior alignment is normal. Moderate degenerative change. No radiopaque foreign bodies. Impression: No acute processes This document has been electronically signed by: Nayan Guzmán MD on 09/20/2024 22:08:23
== END 2024-09-20 10:32 | disposition home or self-care (01) ==
LOC: HO.XRAY 10:31
PROVIDERS: PCP Internal Medicine; Visit Provider Internal Medicine
DX: M54.50 Low back pain, unspecified (principal)
CPT/HCPCS: 72100

== ENCOUNTER → 2024-09-20 11:16 | Outpatient (BNV) | payer OTHER, SELFPAY | PROVIDERS: PCP Internal Medicine; Visit Provider Radiology Diagnostic Radiology | DX: M54.50 Low back pain, unspecified (principal) | CPT/HCPCS: 72100 ==

== ENCOUNTER 2024-09-29 09:05 | Outpatient (REF) | payer OTHER, SELFPAY ==
[2024-09-29 10:11] LABS: Basophils Percent Auto 0.6 % (0-2); Eosinophils Absolute Auto 0.2 X10*3/uL (0.0-0.4); Hematocrit 35.6 % (37.0-47.0); Hemoglobin 11.4 g/dl (12.0-16.0); Imm Gran Abs Auto 0.03 X10*3/uL (0.00-0.03); Imm Gran Pct Auto 0.6 % (0.0-0.4); Lymphocytes Absolute Auto 1.9 X10*3/uL (1.2-4.9); Lymphocytes Percent Auto 35.6 % (20-40); MANUAL DIFF FLAG NO; Mean Corpuscular Hemoglobin 28.7 pg (27.0-33.0); Mean Corpuscular Volume 89.7 fL (80.0-98.0); Mean Platelet Volume 10.8 fL (9.4-12.3); Monocytes Absolute Auto 0.4 X10*3/uL (0.1-1.2); Monocytes Percent Auto 8.2 % (2-11); Neutrophils Absolute Auto 2.8 x10*3/uL (2.0-8.3); Platelet Count 253 X10*3/uL (160-400); Red Blood Count 3.97 X10*6/uL (4.20-5.50); Red Cell Distribution Width 13.8 % (11.0-16.0); White Blood Count 5.4 X10*3/uL (4.8-10.8)
[2024-09-29 10:18] LABS: Estimated Average Glucose 103 mg/dL; Hemoglobin A1C 101.0975 umol/L; Hemoglobin A1c % 5.2 % (<6.0)
[2024-09-29 10:52] LABS: Alanine Aminotransferase 15 U/L (0-31); Alkaline Phosphatase 57 U/L (39-117); Anion Gap 9 (12-20); Aspartate Amino Transferase 24 U/L (5-31); Bilirubin Total 0.2 mg/dL (0.0-1.0); Blood Urea Nitrogen 16 mg/dL (9-16); Calcium 8.9 mg/dL (8.4-10.2); Carbon Dioxide 25 mmol/L (22-29); Chloride 112 mmol/L (96-108); Cholesterol 174 mg/dL (<200); Estimated Glomerular Filt Rate > 60; Glucose Random 90 mg/dL (60-115); HDL Cholesterol 69 mg/dL (>40); LDL Cholesterol Calculated 95 mg/dL (<100); Potassium 4.8 mmol/L (3.3-5.1); Sodium 141 mmol/L (135-145); Total Protein 6.7 g/dL (6.5-8.0); Triglycerides 53 mg/dL (<150)
[2024-09-29 11:06] LABS: Free T4 (Free Thyroxine) 0.91 ng/dL (0.71-1.85); Thyroid Stimulating Hormone 0.78 uIU/mL (0.32-4.0); Vitamin D 25-OH Total 24.2 ng/mL (>30)
[2024-09-29 11:13] LABS: Folate 13.9 ng/mL (> or = 4.0); Vitamin B12 289 pg/mL (200-900)
== END 2024-09-29 09:06 | disposition home or self-care (01) ==
LOC: HO.LAB 09:05
PROVIDERS: PCP Internal Medicine; Visit Provider Internal Medicine
DX: R73.02 Impaired glucose tolerance (oral) (principal); E78.00 Pure hypercholesterolemia, unspecified
CPT/HCPCS: 36415; 80053; 80061; 82306; 82607; 82746; 83036; 84439; 84443; 85025

== ENCOUNTER 2024-10-11 11:26 | Outpatient (AMB) | payer OTHER, SELFPAY ==
[2024-10-11 11:28] VITALS: BMI 30.7
--- NOTE | 2024-10-11 11:28 | A.OFFVIS_ITS ---
Vital Signs 10/11/24 11:28 Height 5 ft 2 in Weight 168 lb BMI 30.7 Intake Visit Reasons: Ultra sound follow up Experience Design Director: Experience Design Director Present Allergies shellfish derived Allergy (Unknown, Verified 09/20/24 10:35) Hives Is last menstrual period known: Yes Last menstrual period: 03/07/20 Post menopausal: No Patient : No Do you need a note to return to daycare/school/sports/work: Yes (for surgery on wednesday) HPI Comments Details: The patient is presenting for follow-up to discuss the results of her abnormal uterine bleeding workup and options of treatment. The following workup was done.: H&H= 11.4/35.6 TSH, hCG, GC and chlamydia were negative. Co testing was done showed the following: General Category: Epithelial cell abnormality. Adequacy: Endocervical component present. Interpretation: Low grade squamous intraepithelial lesion (BRY I), cannot exclude a higg grade/moderate dysplasia. Endometrial cells present HPV High Risk: Positive HPV Genotyping 16: Negative HPV Genotyping 18: Negative Colposcopy/biopsy/ECC with endometrial biopsy pathology showed the following: A. Endometrium, biopsy: - Disordered proliferative endometrium; no atypia or hyperplasia identified. - Few superficial fragments of endocervical and squamous epithelium within normal limits. B. Endocervix, curettage: Small fragments of endocervical mucosa with inflammation and squamous metaplasia. C. Cervix, 3 o'clock, biopsy: Squamous mucosa within normal limits; no endocervical epithelium present. D. Cervix, 4 o'clock, biopsy: Squamous mucosa within normal limits; no endocervical epithelium present. E. Cervix, 11 o'clock, biopsy: Squamous mucosa within normal limits; no endocervical epithelium present. F. Vagina, 8 o'clock apex, biopsy: Squamous mucosa within normal limits. Mammogram was done in 08/01 was BI-RADS 1. Pelvic ultrasound showed the following: The uterus measures 9.5 cm in length. There is a 1.0 x 0.7 x 0.9 cm left intramural fibroid. Again identified in the lower uterine segment, deep to the section scar is a lobulated cystic lesion which currently measures 1.9 x 1.1 x 1.1 cm, previously 1.7 x 0.9 x 1.4 cm. The endometrium measures 11 mm. Redemonstration of multiple nabothian cysts in the cervix. Right ovary 2.9 x 1.7 x 2.4 cm. 1.7 cm dominant follicle. Left ovary 3.1 x 1.6 x 2.2 cm. 1.7 cm dominant follicle. Normal color Doppler of both ovaries. Prominent left adnexal vessels. No free fluid. [facility] Medical History (Updated 10/11/24 @ 11:43 by Romeo Puente MD) Herpes simplex Breast cancer screening by mammogram Colon cancer screening Vitamin D deficiency Obesity (BMI 30-39.9) BRY III (cervical intraepithelial neoplasia grade III) with severe dysplasia Asthma Surgical History History of hysteroscopy History of ankle surgery H/O LEEP History of section Family History Father Colon cancer Mother No problems noted. 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 Sexual orientation: Straight/Heterosexual Gender identity: Female Cognitive needs: No Hearing needs: No Vision needs: No Female Reproductive History Menstrual Age of Menarche: 14 Date of last menstrual period: 03/07/20 Total pregnancies: 2 Full term: 2 Review of Systems Card Reports as per HPI and Reports no additional complaints Resp Reports as per HPI and Reports no additional complaints GI Reports as per HPI and Reports no additional complaints Reports as per HPI Physical Exam Vital Signs: BMI result Body Mass Index 30.7 Const General: cooperative, healthy appearing and comfortable Resp Effort & Inspection: normal respiratory effort Auscultation: clear to auscultation bilaterally Percussion: percussion normal Cardio Palpation: normal PMI Rate: regular rate Rhythm: regular rhythm Heart sounds: no murmurs and no rubs Peripheral pulses: Peripheral pulses 2+ throughout GI Inspection: Yes normal to inspection Palpation (GI): Soft to palpation, nontender, no guarding, not rigid and No hepatosplenomegaly present Percussion: Yes normal to percussion Auscultation: normal bowel sounds Rectal Exam - Female: deferred Assessment & Plan Assessment & Plan (1) Low grade squamous intraepithelial lesion (LGSIL) at risk for high grade squamous intraepithelial lesion (HGSIL) on cytologic smear of cervix: Comment: Endometrial cells HPV high-risk positive, HPV 16/18 negative Code(s): R87.612 - Low grade squamous intraepithelial lesion on cytologic smear of cervix (LGSIL) Category: Medical Plan: Discussed with the patient the results the pathology showing no evidence of dysplasia, sensitivity, specificity, false-positive false-negative rate of colpo scopic biopsy in detecting dysplasia/cancer were discussed with the patient. Recommended either co testing in 12 months versus diagnostic excision procedure. All pros and cons, risks and benefits of each were discussed with the patient, the patient decided to proceed with LEEP cone with post cone ECC. Discussed with the patient the procedure, its benefits and risks including bleeding, infection, possible need for blood transfusion with all its risk ( HIV, syphilis, Hepatitis, anaphylaxis shock, others..), injury to bladder, rectum, possible re-excision for positive margins, potential need for hysterectomy, possible future negative impact on fertility including ( cervical stenosis, incompetence , increase risk for c section 2ndary to cervical scarring and failure of dilatation), possible positive margin necessitating re-excision. Also discussed the patient options of anesthesia either paracervical block versus IV sedation/MAC, prefers to proceed with IV sedation/MAC. All questions answered, the patient verbalized understanding and signed the consent. (2) Abnormal uterine bleeding: Code(s): N93.9 - Abnormal uterine and vaginal bleeding, unspecified Category: Medical Plan: Discussed with the patient the results of the work up done and options of treatment including Lysteda, BCP's, Mirena IUD, cyclic Provera, endometrial ablation and hysterectomy. All pros, cons, risks and benefits if each option was discussed with the patient and the patient decided to think about it and get b ack to us. All questions answered the patient verbalized understanding. (3) Uterine myoma: Code(s): D25.9 - Leiomyoma of uterus, unspecified Category: Medical Plan: Discussed with the patient the findings on pelvic ultrasound & the risk of myosarcoma; in addition reviewed with the patient that malignancy and pre malignancy cannot be ruled out without hysterectomy for pathological evaluation ; furthermore, explained to the patient the limitation of pelvic ultrasound and endometrial biopsy in the setting. Discussed with the patient the options of treatment including expectant management versus hysterectomy; the pros and cons, risks benefits of each approach were discussed with the patient including the fact that in cases of myosarcoma, surgical treatment can lead to early diagnosis and positively affects the prognosis; after further discussion, the patient decided to proceed with expectant management. Will repeat pelvic ultrasound periodically. Instructions given to patient to call in case any of the following occurs: pressure symptoms, abnormal uterine bleeding, pelvic pain; and to schedule a 12 months pelvic ultrasound (order placed) and a follow-up appointment . All questions answered, the patient verbalized understanding and agreed with the plan . Orders: Orders US pelvic and transvaginal 12 Months D25.9 - Leiomyoma of uterus, unspecified Coding Level of Care Code Est Pt Level 3 (72658) Diagnoses Low grade squamous intraepithelial lesion (LGSIL) at risk for high grade squamous intraepithelial lesion (HGSIL) on cytologic smear of cervix R87.612 Abnormal uterine bleeding N93.9 Uterine myoma D25.9
== END 2024-10-11 12:21 | disposition home or self-care (01) ==
LOC: HO.HWS 11:27
PROVIDERS: PCP Internal Medicine; Visit Provider Obstetrics & Gynecology
DX: R87.612 Low grade squamous intraepithelial lesion on cytologic smear of cervix (LGSIL) (principal); N93.9 Abnormal uterine and vaginal bleeding, unspecified; D25.9 Leiomyoma of uterus, unspecified
CPT/HCPCS: 99213

== ENCOUNTER 2024-10-20 08:50 | Day surgery (SDC) | payer OTHER, SELFPAY ==
[2024-10-18 10:41] VITALS: BMI 30.7
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
[2024-10-20] VITALS (7 sets, daily range): BP systolic 101–122; BP diastolic 61–83; PULSE 60–74; RESP 12–18; TEMP 36.1–36.9; O2SAT 97–100; BMI 31.3
[2024-10-20] MEDS: Lactated Ringers 1,000 ML 100 ML IVCONT (09:21)
[2024-10-20 09:22] LABS: UPreg QC Valid YES
[2024-10-20 09:23] LABS: Urine Pregnancy NEGATIVE (NEGATIVE)
--- NOTE | 2024-10-20 10:28 | MHC.SHP ---
Pre-Procedural Eval Section A - 24 Hr Update-Section A only Date of Service: 10/20/24 The patient is an INPATIENT: No Changes since office visit: No Cold of Flu in the past 2 weeks, No New Medical Problems, No Changes in Medication and No Patient answered all questions The patient has been examined within 24 hours of the surgical procedure. The History & Physical has been completed within 30 days and I have reviewed it.: Yes Section B - Complete if H&P > 30 days Chief Complaint: Low grade squamous intraepithelial lesion on Allergies: Allergies Allergy/AdvReac Type Severity Reaction Status Date / Time shellfish derived Allergy Unknown Hives Verified 10/20/24 09:19 Plan Diagnosis/Plan: Unchanged I have reviewed the history and physical and performed a pertinent physical examination on my patient. No changes have occurred unless specified. Time Spent With Patient Time: Total time managing care of this patient today ____ minutes.
--- NOTE | 2024-10-20 10:48 | PM.OP ---
Brief Operative Note Date of Service: 10/20/24 Pre-op diagnosis: LGSIL r/o HGSIL with negative pathology Post-op diagnosis: same Procedure: LEEP CONE with post CONE ECC Surgeon: Romeo Puente MD Anesthesia: GLMA and other (Paracervical block) Was an Piercing Mill Operator used for this Procedure?: No Estimated blood loss (mL): 0 Pathology: other (Cervical cone, top-hat, Post cone ECC) Condition: stable Disposition: other (Home)
--- NOTE | 2024-10-20 10:49 | P.OP_ITS ---
Operative Note Operative Note Date of Service: 10/20/24 Narrative: Pre op diagnosis: LGSIL r/o HGSIL with pathology on cervical biopsy Operation: Colposcopy, Loop electrical excision procedure cone, top hat endocervical excision, post cone ECC Postop diagnosis: the same Quantitative blood loss: 50 cc Surgeon: Romeo Puente MD, FACOG Industrial Management Teacher: None Pathology: Cervical cone, top-hat endo cervical excision, endo cervical curettage Complications: none Anesthesia: GLMA and Para cervical block Procedure: The patient was put in a dorsal lithotomy position, scrubbed and draped in the usual sterile fashion. A speculum was inserted inside the patient's vagina. The cervix is assessed using the colposcope with acetic acid , the lesions were seen, and at least 1 cm of the squamocolumnar junction was observed. 20 x 5 mm size loop was selected based upon the diameter of the lesion. Lugol solution was used to outline the lesions and area of the transformation zone order to be removed 10 cc of xylocaine with epinephrine were injected submucosally into the surface of the cervix (ectocervix) at the 3, 6, 9, and 12 o'clock positions. The electrosurgical generator is set at 40 noyola on blend 1. The loop is carefully passed simultaneously around and under the transformation zone . The loop was allowed to glide through the cervix from one side to the other, allowing the cutting current to divide the tissue. Additional tissue was excised from this area with a smaller-diameter loop , endo cervical top-hat excision was performed An endo cervical curettage is performed following completion of excision, and hemostasis is obtained with a Ball electrode or regular tip cautery. At the end, Monsel's solution was applied to the cone bed. The patient tolerated the procedure well and, all instruments were taken out of the patient vaginal cavity, and the patient was transferred to the PACU in stable condition.
== END 2024-10-20 12:15 | disposition home or self-care (01) ==
PROVIDERS: PCP Internal Medicine; Visit Provider Obstetrics & Gynecology
PROC: 0UBC7ZZ Excision of Cervix, Via Natural or Artificial Opening (ICD-10-PCS; CPT 57522; principal; 2024-10-20 12:10)
DX: R87.612 Low grade squamous intraepithelial lesion on cytologic smear of cervix (LGSIL) (principal); N93.9 Abnormal uterine and vaginal bleeding, unspecified; D25.9 Leiomyoma of uterus, unspecified; J45.909 Unspecified asthma, uncomplicated; B00.9 Herpesviral infection, unspecified; E55.9 Vitamin D deficiency, unspecified; E66.9 Obesity, unspecified; Z68.30 Body mass index [BMI] 30.0-30.9, adult; Z98.890 Other specified postprocedural states; Z87.891 Personal history of nicotine dependence
CPT/HCPCS: 57461; 81025; 88305; 88307; 88341; 88342; J1100; J1885; J2003; J2004; J2250; J2405; J2704; J3010

== ENCOUNTER → 2024-10-20 08:50 | Outpatient (BNV) | payer OTHER, SELFPAY | PROVIDERS: PCP Internal Medicine; Visit Provider Obstetrics & Gynecology | DX: R87.612 Low grade squamous intraepithelial lesion on cytologic smear of cervix (LGSIL) (principal) | CPT/HCPCS: 57461 ==

== ENCOUNTER 2024-10-24 08:28 | Outpatient (AMB) | payer OTHER, SELFPAY ==
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
[2024-10-24 08:35] VITALS: BP 120/66; PULSE 77; TEMP 36.3; O2SAT 98; BMI 31.5
== END 2024-10-24 08:59 | disposition home or self-care (01) ==
LOC: HO.HMCH 08:29
PROVIDERS: PCP Internal Medicine
DX: M54.50 Low back pain, unspecified (principal); V89.2XXD Person injured in unspecified motor-vehicle accident, traffic, subsequent encounter

== ENCOUNTER → 2024-10-24 08:28 | Outpatient (BNVA) | payer OTHER, SELFPAY | PROVIDERS: PCP Internal Medicine | DX: Z13.89 Encounter for screening for other disorder (principal) ==

== ENCOUNTER 2024-10-31 08:01 | Outpatient (RCR) | payer OTHER, SELFPAY ==
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
--- NOTE | 2024-12-25 12:11 | MHC.PT.DC ---
[facility] [place] Office [place] [facility] [place] Office [address] Kala Hay [address] [phone] F: [phone] F: [phone] F: [phone] F: [phone] Physical Therapy Discharge Report Diagnosis: LOW BACK PAIN Date of Surgery: NA Date of Evaluation: 08/22/24 Date of Discharge: 12/25/24 Treatments to Date: 15 Cancellations to Date: No Shows to Date: Discharge Status: Achieved Goals Improved Function Independent with HEP Discharge Summary: Pt LAST SEEN ON 11/01/23. PER THAT ASSESSMENT Pt HAS MET PT GOALS Electronically signed by: DIEGO LENZ PT Please sign and return to therapist. Thank you for your referral.
== END 2024-12-25 12:11 | disposition home or self-care (01) ==
LOC: HO.PT 08:01
PROVIDERS: PCP Internal Medicine; Visit Provider Internal Medicine
DX: M54.50 Low back pain, unspecified (principal)
CPT/HCPCS: 97110; 97140; 97161; 97530; 97535

== ENCOUNTER 2024-11-02 12:40 | Outpatient (AMB) | payer OTHER, SELFPAY ==
--- NOTE | 2024-11-02 12:48 | MHC.OFFVIS ---
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 The patient is doing well with no complaints. Pap LGSIL HPV positive, colpo biopsy ECC negative The pathology showed the following: A. Cervix, conization: Squamous mucosa and focal endocervical glandular mucosa, with reactive changes; negative for dysplasia. B. Cervix, top-hat, excision: Endocervical glandular mucosa and focal squamous mucosa with reactive and metaplastic changes; negative for dysplasia. C. Endocervix, post: Curettage: Scant endocervical glandular and squamous epithelium; negative for dysplasia. Comment: The low-grade dysplastic cells seen in the previous Pap test ([id number]) are not seen in the current excision [facility], [facility] Medical History Herpes simplex Breast cancer screening by mammogram Colon cancer screening Vitamin D deficiency Obesity (BMI 30-39.9) BRY III (cervical intraepithelial neoplasia grade III) with severe dysplasia Asthma Surgical History H/O colonoscopy History of hysteroscopy History of ankle surgery H/O LEEP History of section Family History Father Colon cancer Mother No problems noted. Paternal Grandmother Myocardial infarction Maternal Grandfather Medical history unknown Social History Household Members: Children Housing: Apartment Are you a primary career development coordinator to a significant other at home: No Do you presently have visiting nurse or other home services: No Alcohol intake: current Alcohol intake frequency: a few times a month Comment: once a week 2 drinks glass, Patient Tobacco Use Status: Former Tobacco user Tobacco use type: Cigarette Years Smoked: 2009 stopped e-Cigarette/Vaping Use: Never Used Second Hand Smoke Exposure: Yes service: No Current occupational status: employed 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 Sexual orientation: Straight/Heterosexual Gender identity: Female Cognitive needs: No Hearing needs: No Vision needs: No Female Reproductive History Menstrual Age of Menarche: 14 Review of Systems Const All systems reviewed & are unremarkable except as noted in HPI and below Reports as per HPI and Reports no additional complaints GI Reports no additional complaints Reports no additional complaints Assessment & Plan Assessment & Plan (1) Low grade squamous intraepithelial lesion (LGSIL) at risk for high grade squamous intraepithelial lesion (HGSIL) on cytologic smear of cervix: Comment: Endometrial cells HPV high-risk positive, HPV 16/18 negative Code(s): R87.612 - Low grade squamous intraepithelial lesion on cytologic smear of cervix (LGSIL) Category: Medical Plan: Discussed with the patient the pathology results . Discussed with the patient the sensitivity specificity, positive and negative predictive value in detecting cervical cancer in addition discussed the regression, persistence and progression rates. Recommended co-testing in 12 months, if cytology and or HPV are abnormal will proceed was colposcopy biopsy and endocervical curettage. Instructions given to the patient to schedule a co test appointment in 1 year. All questions answered the patient verbalized understanding. Coding Level of Care Code Est Pt Level 3 (27275) Diagnoses Low grade squamous intraepithelial lesion (LGSIL) at risk for high grade squamous intraepithelial lesion (HGSIL) on cytologic smear of cervix R87.612
== END 2024-11-02 13:16 | disposition home or self-care (01) ==
PROVIDERS: PCP Internal Medicine; Visit Provider Obstetrics & Gynecology
DX: R87.612 Low grade squamous intraepithelial lesion on cytologic smear of cervix (LGSIL) (principal)
CPT/HCPCS: 99213